=== PATIENT | female | born 1965 | race Caucasian/White ===

== ENCOUNTER 2017-01-20 04:17 | Observation (INO) | payer BC ==
[2017-01-20 04:54] LABS: Basophils % (A) 0 %; CH 31.2; CHCM 33.3; Eosinophils # (A) 0.1 k/uL (0-0.7); Eosinophils % (A) 2 %; HCT 41.2 % (34.0-46.0); HDW 2.38; HGB 13.2 gm/dL (11.4-16.0); Luc # (Auto) 0.17; Luc % (Auto) 2; Lymphocytes % (A) 27 %; MCH 30.2 pg (25.0-35.0); MCHC 32.1 g/dL (31.0-37.0); MCV 94.2 fL (80.0-100.0); Mean Platelet Volume 8.1; Monocytes # (A) 0.4 k/uL (0-1.0); Monocytes % (A) 6 %; Neutrophils # (A) 4.5 k/uL (1.3-7.7); Neutrophils % (A) 63 %; RBC 4.37 m/uL (3.80-5.40); RDW 14.5 % (11.5-15.5); WBC 7.2 k/uL (3.8-10.6); WBC (Perox) 6.94
[2017-01-20 05:03] LABS: ALT 35 U/L (9-52); AST 18 U/L (14-36); Alkaline Phosphatase 90 U/L (38-126); Anion Gap 11 mmol/L; Blood Urea Nitrogen 13 mg/dL (7-17); Calcium 9.8 mg/dL (8.4-10.2); Carbon Dioxide 25 mmol/L (22-30); Chloride 103 mmol/L (98-107); Glucose 96 mg/dL (74-99); Non-African American GFR(MDRD) >60 (>60 ml/min/1.73 sqM); Potassium 4.3 mmol/L (3.5-5.1); Sodium 139 mmol/L (137-145); Total Bilirubin 0.5 mg/dL (0.2-1.3); Total Protein 7.2 g/dL (6.3-8.2)
[2017-01-20 05:07] LABS: Partial Thromboplastin Time 27.9 sec (22.0-30.0); Prothrombin Time 10.1 sec (9.0-12.0)
[2017-01-20 05:14] LABS: Creatine Kinase 44 U/L (30-135)
--- NOTE | 2017-01-20 05:19 | XR ---
EXAM: XR Chest, 2 Views CLINICAL HISTORY: Reason: Chest Pain TECHNIQUE: Frontal and lateral views of the chest. COMPARISON: No relevant prior studies available. FINDINGS: Lungs: Lungs are clear. Pleural space: No evidence of pleural effusion or pneumothorax. Heart: Heart size is within normal limits. Mediastinum: Unremarkable. Bones/joints: Fixation plate projects to lower cervical spine. Imaged bony thorax is otherwise unremarkable. IMPRESSION: No evidence of active chest disease.
[2017-01-20 05:27] LABS: Troponin I <0.012 ng/mL (0.000-0.034)
--- NOTE | 2017-01-20 06:24 | ED ---
General Adult HPI - General Chief complaint: Chest Pain Stated complaint: Chest pain Time Seen by Provider: 01/20/17 04:18 Source: patient, RN notes reviewed, old records reviewed Mode of arrival: wheelchair Limitations: no limitations - History of Present Illness Initial comments: This is a 51-year-old female to the ER for evaluation patient coming in for evaluation of chest pain just started today, no history of chest pain no Hyla first questionable no diabetes no shortness of breath no history of recent shortness of breath. No fevers cough or congestion. Patient has no prior cardiac evaluation. No recent surgical history. Takes no medications patient' s chest pain is anterior substernal epigastric heaviness. No modifying factors - Related Data Home Medications Medication Instructions Recorded Confirmed No Known Home Medications [No 01/20/17 01/20/17 Known Home Medications] Allergies Allergy/AdvReac Type Severity Reaction Status Date / Time No Known Allergies Allergy Verified 01/20/17 04:23 Review of Systems ROS Statement: Those systems with pertinent positive or pertinent negative responses have been documented in the HPI. ROS Other: All systems not noted in ROS Statement are negative. Past Medical History Past Medical History: No Reported History History of Any Multi-Drug Resistant Organisms: None Reported Past Surgical History: Back Surgery Past Psychological History: Depression Smoking Status: Never smoker Past Alcohol Use History: Occasional Past Drug Use History: None Reported General Exam Limitations: no limitations General appearance: alert, in no apparent distress Head exam: Present: atraumatic, normocephalic, normal inspection Eye exam: Present: normal appearance, PERRL, EOMI. Absent: scleral icterus, conjunctival injection, periorbital swelling ENT exam: Present: normal exam, mucous membranes moist Neck exam: Present: normal inspection. Absent: tenderness, meningismus, lymphadenopathy Respiratory exam: Present: normal lung sounds bilaterally. Absent: respiratory distress, wheezes, rales, rhonchi, stridor Cardiovascular Exam: Present: regular rate, normal rhythm, normal heart sounds. Absent: systolic murmur, diastolic murmur, rubs, gallop, clicks GI/Abdominal exam: Present: soft, normal bowel sounds. Absent: distended, tenderness, guarding, rebound, rigid Extremities exam: Present: normal inspection, full ROM, normal capillary refill. Absent: tenderness, pedal edema, joint swelling, calf tenderness Back exam: Present: normal inspection Neurological exam: Present: alert, oriented X3, CN II-XII intact Psychiatric exam: Present: normal affect, normal mood Skin exam: Present: warm, dry, intact, normal color. Absent: rash Course Vital Signs 01/20/17 01/20/17 01/20/17 04:20 04:34 06:23 Temperature 98.0 F 97.8 F Pulse Rate 87 74 72 Respiratory 18 18 18 Rate Blood Pressure 144/66 146/90 144/73 O2 Sat by Pulse 100 98 99 Oximetry - Reevaluation(s) Reevaluation #1: 01/20/17 06:40 Still complains of this chest pain, at this point no shortness of breath, no fevers. Patient has no improvement with GI cocktail EKG Findings - EKG Comments: EKG Findings:: EKG shows normal sinus rhythm rate of 67, ID 120, QRS 84, QTC 433. EKG shows normal sinus under 63, ID 13, QRS 90, QTC 435 Medical Decision Making - Medical Decision Making 51 female here for evaluation of chest pain. Anterior chest pain. Epigastric chest pain or shortness of breath and heaviness. Patient will be admitted for cardiac observation - Lab Data Result diagrams: 01/20/17 04:40 01/20/17 04:40 Lab Results 01/20/17 01/20/17 01/20/17 Range/Units 04:40 04:40 04:40 WBC 7.2 (3.8-10.6) k/uL RBC 4.37 (3.80-5.40) m/uL Hgb 13.2 (11.4-16.0) gm/dL Hct 41.2 (34.0-46.0) % MCV 94.2 (80.0-100.0) fL MCH 30.2 (25.0-35.0) pg MCHC 32.1 (31.0-37.0) g/dL RDW 14.5 (11.5-15.5) % Plt Count 311 (150-450) k/uL Neutrophils % 63 % Lymphocytes % 27 % Monocytes % 6 % Eosinophils % 2 % Basophils % 0 % Neutrophils # 4.5 (1.3-7.7) k/uL Lymphocytes # 2.0 (1.0-4.8) k/uL Monocytes # 0.4 (0-1.0) k/uL Eosinophils # 0.1 (0-0.7) k/uL Basophils # 0.0 (0-0.2) k/uL PT (9.0-12.0) sec INR (<1.2) APTT (22.0-30.0) sec D-Dimer (<0.60) mg/L FEU Sodium 139 (137-145) mmol/L Potassium 4.3 (3.5-5.1) mmol/L Chloride 103 (98-107) mmol/L Carbon Dioxide 25 (22-30) mmol/L Anion Gap 11 mmol/L BUN 13 (7-17) mg/dL Creatinine 0.70 (0.52-1.04) mg/dL Est GFR (MDRD) Af Amer >60 (>60 ml/min/1.73 sqM) Est GFR (MDRD) Non-Af >60 (>60 ml/min/1.73 sqM) Glucose 96 (74-99) mg/dL Calcium 9.8 (8.4-10.2) mg/dL Magnesium 2.0 (1.6-2.3) mg/dL Total Bilirubin 0.5 (0.2-1.3) mg/dL AST 18 (14-36) U/L ALT 35 (9-52) U/L Alkaline Phosphatase 90 (38-126) U/L Total Creatine Kinase 44 (30-135) U/L CK-MB (CK-2) 1.0 (0.0-2.4) ng/mL CK-MB (CK-2) Rel Index 2.3 Troponin I <0.012 (0.000-0.034) ng/mL Total Protein 7.2 (6.3-8.2) g/dL Albumin 4.3 (3.5-5.0) g/dL Lipase 98 (23-300) U/L 01/20/17 Range/Units 04:40 WBC (3.8-10.6) k/uL RBC (3.80-5.40) m/uL Hgb (11.4-16.0) gm/dL Hct (34.0-46.0) % MCV (80.0-100.0) fL MCH (25.0-35.0) pg MCHC (31.0-37.0) g/dL RDW (11.5-15.5) % Plt Count (150-450) k/uL Neutrophils % % Lymphocytes % % Monocytes % % Eosinophils % % Basophils % % Neutrophils # (1.3-7.7) k/uL Lymphocytes # (1.0-4.8) k/uL Monocytes # (0-1.0) k/uL Eosinophils # (0-0.7) k/uL Basophils # (0-0.2) k/uL PT 10.1 (9.0-12.0) sec INR 1.0 (<1.2) APTT 27.9 (22.0-30.0) sec D-Dimer 0.27 (<0.60) mg/L FEU Sodium (137-145) mmol/L Potassium (3.5-5.1) mmol/L Chloride (98-107) mmol/L Carbon Dioxide (22-30) mmol/L Anion Gap mmol/L BUN (7-17) mg/dL Creatinine (0.52-1.04) mg/dL Est GFR (MDRD) Af Amer (>60 ml/min/1.73 sqM) Est GFR (MDRD) Non-Af (>60 ml/min/1.73 sqM) Glucose (74-99) mg/dL Calcium (8.4-10.2) mg/dL Magnesium (1.6-2.3) mg/dL Total Bilirubin (0.2-1.3) mg/dL AST (14-36) U/L ALT (9-52) U/L Alkaline Phosphatase (38-126) U/L Total Creatine Kinase (30-135) U/L CK-MB (CK-2) (0.0-2.4) ng/mL CK-MB (CK-2) Rel Index Troponin I (0.000-0.034) ng/mL Total Protein (6.3-8.2) g/dL Albumin (3.5-5.0) g/dL Lipase (23-300) U/L - Radiology Data Radiology results: report reviewed (Chest x-ray is negative for acute disease), image reviewed Critical Care Time Critical Care Time: Yes Total Critical Care Time: 31 Disposition Clinical Impression: Chest pain Disposition: ADMITTED IP TO THIS [facility] Condition: Undetermined Instructions: Chest Pain (ED) Referrals: Melissa Diaz MD [Primary Care Provider] - 1-2 days
[2017-01-20] MEDS ORDERED: MAG HYDROX/AL HYDROX/SIMETH 30 ML, HYOSCYAMINE ELIXIR 10 ML, CIMETIDINE HCL 300 MG PO STA ×3 (06:28)
[2017-01-20] MEDS ORDERED: HEPARIN SODIUM,PORCINE 5,000 UNIT/ML 1 ML VIAL IV ONE (06:39)
[2017-01-20] MEDS ORDERED: HEPARIN SODIUM,PORCINE 5,000 UNIT/ML 1 ML VIAL IV PRN (06:39)
[2017-01-20] MEDS ORDERED: ASPIRIN 81 MG CHEW PO STA (06:39)
[2017-01-20] MEDS: HEPARIN SODIUM,PORCINE/D5W PMX 25,000 UNIT in DEXTROSE/WATER 1 500ML.BAG IV SCH (07:04)
[2017-01-20] MEDS: NITROGLYCERIN SL TABS 0.4 MG TAB SUBLINGUAL PRN ×2 (11:25→11:30)
[2017-01-20] MEDS ORDERED: ACETAMINOPHEN TAB 325 MG TAB ONE (11:32)
[2017-01-20 11:45] LABS: Creatine Kinase 41 U/L (30-135)
[2017-01-20 11:55] LABS: Creatine Kinase MB 0.9 ng/mL (0.0-2.4); Troponin I <0.012 ng/mL (0.000-0.034)
[2017-01-20] MEDS: NITROGLYCERIN OINT 1 INCH/GM PACKET TOPICAL SCH ×2 (14:00→20:03)
[2017-01-20] MEDS: METOPROLOL TARTRATE 12.5 MG TAB PO SCH ×2 (14:00→22:53)
[2017-01-20 16:34] LABS: Creatine Kinase 34 U/L (30-135)
[2017-01-20 16:45] LABS: Creatine Kinase MB 0.6 ng/mL (0.0-2.4); Troponin I <0.012 ng/mL (0.000-0.034)
[2017-01-20] MEDS: ACETAMINOPHEN TAB 500 MG TAB PO PRN (20:03)
--- NOTE | 2017-01-20 20:12 | CONS ---
This is a 51-year-old lady without past medical history. She is a reasonably active lady, and she came into the emergency room because she woke up from sleep around 1:30 with chest pain. Apparently the pain she describes is a feeling of uncomfortable sensation in the epigastric area and later on to the left axillary area. She came into the emergency room, and after receiving nitroglycerine felt relief from the chest pain. EKG revealed minor non-specific ST-T changes and 2 sets of troponins are normal. She is resting comfortably without symptoms. Initially when I saw her she had some discomfort, but apparently she is quite asymptomatic, and 2 sets of troponins are normal. Her EKG revealed non-specific changes which are not suggestive of ischemia. She describes herself as a fairly reasonably active person. At the time of my evaluation, she is asymptomatic. PAST MEDICAL HISTORY: Unremarkable for any hypertension, diabetes, myocardial infarction or CVA. MEDICATIONS: None. ALLERGIES: NONE. REVIEW OF SYSTEMS: Remarkable for cervical spine surgery and lumbar surgery performed a few years ago. Cervical spine surgery was ( ) years ago with fusion from C3 to C7 because of degenerative joint disease. She also had lumbar surgery several years ago. She also seems to have some mild depression. On examination, blood pressure is 128/70. Pulse rate is 70 per minute, regular. HEENT: Unremarkable. Fundus was not examined by me. Neck is supple. No JVD. I do not hear a carotid bruit. There is no thyromegaly. Heart exam reveals S1, S2 heard normally without a rub, murmur or gallop. Lungs are clear. Abdomen is soft, non-tender. Lower extremities reveal normal pulses. No edema. Central nervous system is normal. EKG reveals sinus mechanism with very minor non-specific ST-T changes. Laboratory data reveal that 2 initial sets of troponins are normal. All the other labs are also within normal limits. IMPRESSION: Chest pain syndrome. Cannot totally exclude angina. D-dimer is normal. Two troponins are normal. EKG does not reveal significant findings. Patient is not having any further chest pain. I am recommending that we perform a stress Cardiolite scan tomorrow if she can walk. Otherwise, we will do a Lexiscan stress test. However, if she has any symptoms in the interim, I will perform coronary angiography. I discussed my thoughts in detail with the patient and her friend. She is in agreement with the above-outlined approach. Thank you very much for the consult. TIARA
[2017-01-21] MEDS: NITROGLYCERIN OINT 1 INCH/GM PACKET TOPICAL SCH ×3 (05:33→12:35)
[2017-01-21] MEDS: ACETAMINOPHEN TAB 500 MG TAB PO PRN (06:29)
[2017-01-21 06:59] LABS: Mean Platelet Volume 7.3
[2017-01-21 07:09] LABS: Cholesterol 200 mg/dL (<200); HDL Cholesterol 67 mg/dL (40-60)
[2017-01-21 08:10] VITALS: BP 112/63; PULSE 75; RESP 16; TEMP 98.9
[2017-01-21] MEDS ORDERED: ASPIRIN 325 MG TAB PO SCH (09:00)
--- NOTE | 2017-01-21 10:07 | ECHOF ---
Referral Reason:chest pain MEASUREMENTS -------- HEIGHT: 162.6 cm WEIGHT: 79.4 kg BP: 109/61 IVSd: 0.9 cm (0.6 - 1.1) LVIDd: 4.3 cm (3.9 - 5.3) LVPWd: 1.1 cm (0.6 - 1.1) IVSs: 1.5 cm LVIDs: 2.8 cm LVPWs: 1.7 cm Ao Diam: 2.7 cm (2.0 - 3.7) AV Cusp: 2.2 cm (1.5 - 2.6) LA Diam: 2.7 cm (2.7 - 3.8) MV EXCURSION: 15.184 mm (> 18.000) MV EF SLOPE: 136 mm/s (70 - 150) EPSS: 0.3 cm MV E Shashi: 0.83 m/s MV DecT: 250 ms MV A Shashi: 0.73 m/s MV E/A Ratio: 1.14 RAP: 5.00 mmHg RVSP: 8.46 mmHg FINDINGS -------- Sinus rhythm. This was a technically good study. Left ventricular wall thickness is normal. Overall left ventricular systolic function is normal with, an EF between 55 - 60 %. The right ventricle is normal in size and function. The left atrium is normal in size. The right atrium is normal in size. The aortic valve is trileaflet, and appears structurally normal. No aortic stenosis or regurgitation. The mitral valve leaflets are mildly thickened. There is trace mitral regurgitation. Trace tricuspid regurgitation present. The right ventricular systolic pressure, as measured by Doppler, is 8.46mmHg. Pulmonic valve appears structurally normal. The aortic root size is normal. The pericardium is normal. CONCLUSIONS -------- 1. Sinus rhythm. 2. There is trace mitral regurgitation. 3. Trace tricuspid regurgitation present. 4. The right ventricular systolic pressure, as measured by Doppler, is 8.46mmHg. 5. Pulmonic valve appears structurally normal. 6. The aortic root size is normal. 7. The pericardium is normal. 8. This was a technically good study. 9. Left ventricular wall thickness is normal. 10. Overall left ventricular systolic function is normal with, an EF between 55 - 60 %. 11. The right ventricle is normal in size and function. 12. The left atrium is normal in size. 13. The right atrium is normal in size. 14. The aortic valve is trileaflet, and appears structurally normal. No aortic stenosis or regurgitation. 15. The mitral valve leaflets are mildly thickened. DOWN FILLER: Collette Verdugo RDCS
[2017-01-21] MEDS: METOPROLOL TARTRATE 12.5 MG TAB PO SCH (10:34)
--- NOTE | 2017-01-21 10:49 | NM ---
EXAMINATION TYPE: NM stress cardiolite complete DATE OF EXAM: 01/21/2017 COMPARISON: NONE HISTORY: TECHNIQUE: After the intravenous administration of 10.9 mCi Tc 99m Sestamibi - Rest images obtained 60 minutes post injection. The patient exercised using a JESS protocol and 1 minute prior to peak exercise was injected with 26.1 mCi Tc 99m Sestamibi - Stress images obtained 15 minutes post injecti on. FINDINGS: Targeted heart rate was achieved during performance of the study. Review of stress and rest SPECT nikki ges demonstrates no distinct perfusion abnormality. Gated analysis shows normal wall motion with an estimated left ventricular ejection fraction of 63 %. IMPRESSION: No scintigraphic evidence for reversible ischemia
[2017-01-21] MEDS: HEPARIN SODIUM,PORCINE/D5W PMX 25,000 UNIT in DEXTROSE/WATER 1 500ML.BAG IV SCH (10:50)
--- NOTE | 2017-01-21 11:22 | EST ---
DATE OF SERVICE: 01/21/2017 TYPE OF REPORT: JESS CARDIOLITE STRESS TEST INDICATION: Chest pain. BASELINE HEART RATE: 95 BASELINE BLOOD PRESSURE: 122/65 MAXIMUM HEART RATE: 152 MAXIMUM BLOOD PRESSURE: 198/93 85% MPHR: 145 100% MPHR: 170 METS: 8.5 MAXIMUM STAGE REACHED: 3 TOTAL EXERCISE TIME: 7:00 Baseline EKG revealed normal sinus rhythm with a minor nonspecific ST-T abnormality. Patient walked on standard Jess protocol for 7 minutes, achieved a maximal heart rate of 152 beats per minute which is more than 85% of predicted maximal. She developed fatigue and shortness of breath but did not have any angina or arrhythmia. EKG did not reveal any new ST-segment changes to indicate ischemia but because of resting ST-segment abnormality, this is considered as an inconclusive stress test with limited exercise capacity. The nuclear scan results which are more pertinent will be reported by the radiologist. Maximal blood pressure was 198/93 and resting blood pressure was 122/65. [facility]
--- NOTE | 2017-01-21 12:23 | P.HPIM ---
History of Present Illness H&P Date: 01/20/17 Chief Complaint: Chest pain History and physical and discharge summary. This is a 51-year-old female patient of Dr. Walters with a past medical history of lumbar disc disease and cervical spine disease. Patient was sleeping and woke at 1:30 this morning due to a sharp pain in the left breast. She denies any nausea or shortness of breath. He she does state she felt hot. She took Tylenol and Pepcid without improvement. Patient ended up coming to the ER [facility] with above complaint and had an EKG that showed normal sinus rhythm with no acute ischemic changes, cardiac enzymes are negative , however because of her presentation she was admitted to the hospital for evaluation. Patient stated that she walk her dog on a daily basis but to management any evidence of any effort dyspnea however she does complain of more weakness over the last few weeks, patient has no hemoptysis, no pleurisy, she has no edema both lower extremities, she has no palpitation, she has no headache or syncope. Review of Systems Constitutional: Denies anorexia, Denies chronic headaches, Denies lethargy, Denies malaise, Denies weight gain, Denies weight loss Eyes: denies blurred vision, denies bulging eye, denies decreased vision, denies diplopia Ears: deny: decreased hearing Ears, nose, mouth and throat: Denies dysphagia, Denies neck lump, Denies sore throat, Denies vertigo Cardiovascular: Reports dyspnea on exertion, Reports irregular heart beat, Reports shortness of breath, Denies chest pain, Denies phlebitis, Denies rapid heart beat Respiratory: Denies congestion, Denies cough with sputum, Denies home oxygen, Denies sleep apnea, Denies snoring, Denies wheezing Gastrointestinal: Denies abdominal pain, Denies BRBPR, Denies change in bowel habits, Denies excessive gas, Denies heartburn, Denies melena, Denies nausea, Denies vomiting Genitourinary: Denies dysuria, Denies hematuria Musculoskeletal: Reports neck pain, Reports neck stiffness, Denies myalgias Musculoskeletal: absent: ankle pain, ankle stiffness, ankle swelling, elbow pain , elbow stiffness, elbow swelling, foot pain, foot stiffness, foot swelling, hand pain, hand stiffness, hand swelling, hip pain, hip stiffness, hip swelling , knee pain, knee stiffness, knee swelling, shoulder pain, shoulder stiffness, shoulder swelling, wrist pain, wrist stiffness, wrist swelling Integumentary: Denies pruritus, Denies rash Neurological: Denies numbness, Denies weakness Psychiatric: Denies anxiety, Denies depression Endocrine: Denies fatigue, Denies weight change Past Medical History Past Medical History: Hyperlipidemia, Osteoarthritis (OA) Additional Past Medical History / Comment(s): Degenerative disc disease of the cervical spine and lumbar spine status post ACDF. History of Any Multi-Drug Resistant Organisms: None Reported Past Surgical History: Back Surgery Additional Past Surgical History / Comment(s): 2 lumbar laminectomies, C3 to C7 ACDF Past Psychological History: Depression Smoking Status: Never smoker Past Alcohol Use History: Occasional Additional Past Alcohol Use History / Comment(s): Patient is a lifelong nonsmoker. No illicit drug use. She drinks alcohol socially. 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 Past Drug Use History: None Reported - Past Family History Father Additional Family Medical History / Comment(s): Father is alive at age 77 with history of depression and other mental health issues. Mother Additional Family Medical History / Comment(s): Mother is alive at age 75 with history of myocardial infarction at age 70. Maternal grandfather at age 40 from a myocardial infarction. Paternal grandmother of colon cancer. Brother(s) Additional Family Medical History / Comment(s): Patient has one brother alive and healthy with no major medical problems. Patient does not have any sisters. Patient does not have any children. Medications and Allergies Allergies Allergy/AdvReac Type Severity Reaction Status Date / Time No Known Allergies Allergy Verified 01/20/17 07:12 Physical Exam Vitals: Vital Signs Temp Pulse Resp BP Pulse Ox 01/20/17 09:55 97.8 F 63 17 126/60 100 01/20/17 09:53 97.8 F 63 17 126/60 100 01/20/17 08:00 63 17 126/60 100 01/20/17 07:28 106 H 18 139/72 01/20/17 06:23 97.8 F 72 18 144/73 99 01/20/17 04:34 74 18 146/90 98 01/20/17 04:20 98.0 F 87 18 144/66 100 Intake and Output 01/19/17 01/20/17 01/20/17 22:59 06:59 14:59 Other: Weight 79.379 kg - Constitutional General appearance: no acute distress - EENT Eyes: anicteric sclerae, EOMI, PERRLA, no scleral icterus, normal appearance ENT: hearing grossly normal, NA/AT, normal oropharynx, no thrush Ears: bilateral: normal - Neck Neck: no lymphadenopathy, normal ROM, no rigidity, no stridor, no thyromegaly Carotids: bilateral: upstroke normal Thyroid: bilateral: normal size - Respiratory Respiratory: bilateral: CTA, negative: diminished, dullness, rales, rhonchi, wheezing, prolonged expiration - Cardiovascular Rhythm: regular Heart sounds: normal: S1, S2 Abnormal Heart Sounds: no systolic murmur, no diastolic murmur, no rub, no S3 Gallop, no S4 Gallop, no click - Gastrointestinal General gastrointestinal: normal bowel sounds, soft, no splenomegaly, no tenderness, no umbilical hernia, no ventral hernia - Integumentary Integumentary: normal, normal turgor - Musculoskeletal Musculoskeletal: strength equal bilaterally - Psychiatric Psychiatric: A&O x's 3, appropriate affect, intact judgment & insight Results CBC & Chem 7: 01/21/17 06:25 01/20/17 04:40 Thrombosis Risk Factor Assmnt - DVT/VTE Prophylaxis DVT/VTE Prophylaxis: Pharmacologic Prophylaxis ordered Assessment and Plan Plan: Assessment and plan: 1. Chest pain noncardiac. Few risk factor for CAD. Including weight as well as family history, patient will be sent for a stress echo for further evaluation due to her family history, and if her stress test is negative can be discharged home and follow up with her primary care physician as an outpatient. 2. Degenerative disc disease of the lumbar spine as well as cervical spine status post surgery. 3. Hyperlipidemia. Fasting lipid profile 4. Overweight. Diet and exercise and weight loss. 5. Admitted as an observation. 6. Stress test is negative patient can be discharged home with follow-up with her primary care physician as an outpatient.
--- NOTE | 2017-01-21 12:30 | P.DS ---
Providers Date of admission: 01/20/17 06:39 Expected date of discharge: 01/21/17 Attending physician: Concepcion Malik Consults: 01/20/17 06:39 Consult Physician Urgent Consulting Provider: Mykel Mendoza Consult Reason/Comments: cp Do you want consulting provider notified?: Yes Primary care physician: Melissa Diaz [facility] Course: This is a 51-year-old female patient of Dr. Walters with a past medical history of lumbar disc disease and cervical spine disease. Patient was sleeping and woke at 1:30 this morning due to a sharp pain in the left breast. She denies any nausea or shortness of breath. He she does state she felt hot. She took Tylenol and Pepcid without improvement. Patient ended up coming to the ER [facility] with above complaint and had an EKG that showed normal sinus rhythm with no acute ischemic changes, cardiac enzymes are negative , however because of her presentation she was admitted to the hospital for evaluation. Patient stated that she walk her dog on a daily basis but to management any evidence of any effort dyspnea however she does complain of more weakness over the last few weeks, patient has no hemoptysis, no pleurisy, she has no edema both lower extremities, she has no palpitation, she has no headache or syncope. 01/21: Echocardiogram reveals EF 55-60% with trace tricuspid regurgitation, trace mitral regurgitation. Stress Cardiolite was negative and patient will be discharged home today in stable condition. Triglycerides 162, cholesterol 200, LDL 101 and HDL 67. Discharge diagnoses: 1. Chest pain noncardiac. 2. Degenerative disc disease of the lumbar spine as well as cervical spine status post surgery. 3. Hyperlipidemia. 4. Overweight. 5. Admitted as an observation. Discharge plan: Home Impression and plan of care have been directed as dictated by the signing physician. Antonietta Herndon nurse practitioner acting as scribe for signing physician. Cc: Dr. Diaz Patient Condition at Discharge: Good Plan - Discharge Summary New Discharge Prescriptions: New Metoprolol Tartrate [Lopressor] 12.5 mg PO BID #60 tab Discharge Medication List Metoprolol Tartrate [Lopressor] 12.5 mg PO BID #60 tab 01/21/17 [Rx] Follow up Appointment(s)/Referral(s): Keshia Carlton MD [STAFF PHYSICIAN] - As Needed Melissa Diaz MD [Primary Care Provider] - 1 Week Patient Instructions/Handouts: Chest Pain (ED) Discharge Disposition: HOME SELF-CARE
--- NOTE | 2017-01-21 13:40 | P.PN ---
Subjective Patient remained asymptomatic overnight. She underwent a Cardiolite stress test this morning. Objective - Vital Signs Vital signs: Vital Signs Temp 98.9 F 01/21/17 08:00 Pulse 75 01/21/17 08:00 Resp 16 01/21/17 08:00 BP 112/63 01/21/17 08:00 Pulse Ox 95 01/21/17 08:00 Intake & Output 01/20/17 01/21/17 01/21/17 18:59 06:59 18:59 Intake Total 480 Balance 480 Intake: Oral 480 Other: Voiding Method Toilet # Voids 2 - Exam GENERAL: Well-appearing, well-nourished and in no acute distress. NECK: Supple without JVD or thyromegaly. LUNGS: Breath sounds clear to auscultation bilaterally and equal. No wheezes, rales or rhonchi. HEART: Regular rate and rhythm without murmurs, rubs or gallops. S1 and S2 heard. ABDOMEN: Soft, nontender, normoactive bowel sounds. EXTREMITIES: Normal range of motion, no edema. No clubbing or cyanosis. Peripheral pulses intact and strong. - Labs CBC & Chem 7: 01/21/17 06:25 01/20/17 04:40 Labs: Abnormal Lab Results - Last 24 Hours (Table) 01/21/17 Range/Units 06:25 Triglycerides 162 H (<150) mg/dL Cholesterol 200 H (<200) mg/dL LDL Cholesterol, Calc 101 H (0-99) mg/dL HDL Cholesterol 67 H (40-60) mg/dL Assessment and Plan Plan: ASSESSMENT 1. Chest pain, atypical. Noncardiac 2. Hyperlipidemia PLAN Patient had a negative Cardiolite stress test. From a cardiac standpoint it is suitable for discharge home. She was started on Lopressor 12.5 mg twice a day. This should be continued. She can follow-up with her primary care physician within one week and Dr. KARI Carlton as needed.
== END 2017-01-21 12:00 | disposition home or self-care (01) ==
LOC: EC 04:17 → 3OBS 06:39 → 2CATHESU 09:56 → 3OBS 11:24
PROVIDERS: ADMIT Internal Medicine; ATTEND Internal Medicine
DX: R07.89 Other chest pain (principal); F32.9 Major depressive disorder, single episode, unspecified; M50.30 Other cervical disc degeneration, unspecified cervical region; R06.02 Shortness of breath; E78.5 Hyperlipidemia, unspecified; M19.90 Unspecified osteoarthritis, unspecified site; M51.36 Other intervertebral disc degeneration, lumbar region; E66.3 Overweight; I08.1 Rheumatic disorders of both mitral and tricuspid valves; Z82.49 Family history of ischemic heart disease and other diseases of the circulatory system
CPT/HCPCS: 96366 ×3; 96376; 96365; 99291; 36415; 93005 ×2; 93017; 93306; 85379; 80061; 80053; 82550; 82553; 83690; 83735; 84484; 85025; 85049; 85610; 85730; 71020; 78452; G0378 ×2; A9500; J1644 ×2

== ENCOUNTER → 2017-02-04 | Outpatient (CLI) | payer BC ==
--- NOTE | 2017-02-04 15:07 | CT ---
EXAMINATION TYPE: CT chest w con DATE OF EXAM: 02/04/2017 COMPARISON: NONE HISTORY: Chest pain CT DLP: 274.70 mGycm. Automated Exposure Control for Dose Reduction was Utilized. TECHNIQUE: CT scan of the thorax is performed following with IV Contrast, patient injected with 100 ml mL of Omnipaque 300. FINDINGS: There is partial visualization of an anterior cervical fusion device in its inferior margin . LUNGS: The lungs are grossly clear, there is no concerning parenchymal mass or nodule identified. T here is no pleural effusion or pneumothorax seen. The tracheobronchial tree is patent. There is slig ht elevation of the right hemidiaphragm from the liver impression. MEDIASTINUM: There are no greater than 1 cm hilar or mediastinal lymph nodes. No pericardial effusi on is seen. No central pulmonary embolus is seen. Both the ascending aorta and pulmonary artery are not enlarged. OTHER: Small Bochdalek diaphragmatic hernias noted. Incompletely characterized hypoattenuating hepat ic lesions are seen on series 4 image 61, 59, 47 and possibly on 39. Cholelithiasis is also incidenta lly noted. IMPRESSION: 1. No CT finding to correspond to the patient's stated chest pain. Normal calvarial pulmonary arterie s, heart, and thoracic aorta. No evidence of dissection or central pulmonary embolus. 2. Multiple incompletely characterized hypoattenuated hepatic lesions. Further characterization with dynamic contrast enhanced CT abdomen or MR abdomen is recommended for further evaluation and characte rization. 3. Incidentally noted cholelithiasis and small diaphragmatic Bochdalek hernia.
== END | disposition home or self-care (01) ==
LOC: RADCTMAIN 14:10
PROVIDERS: ATTEND Family Medicine
DX: R07.9 Chest pain, unspecified (principal)
CPT/HCPCS: 71260; Q9967

== ENCOUNTER → 2017-02-19 | Outpatient (CLI) | payer BC ==
--- NOTE | 2017-02-19 15:24 | CT ---
EXAMINATION TYPE: CT abdomen w con DATE OF EXAM: 02/19/2017 COMPARISON: NONE HISTORY: Hepatic Lesions CT DLP: 586.9 mGycm Automated exposure control for dose reduction was used. TECHNIQUE: Helical acquisition of images was performed from the lung bases through the top of iliac crest to include entire abdomen. CONTRAST: Performed with Oral Contrast and with IV Contrast, patient injected with 100 mL of Omnipaque 300. FINDINGS: LUNG BASES: No significant abnormality is appreciated. LIVER/GB: Solid appearing mass near the caudate lobe and measures 3.3 cm and appears to fill in follo wing delayed imaging and this likely reflects a hemangioma. Simple cyst near the falciform ligament ( lobe measures 1 cm. An additional hypoattenuating lesion anterior segment right hepatic lobe at the p eriphery of the liver appears to fill in on delayed images and measures 1.2 cm. This likely reflects a hemangioma. Additional lesion near the tip of the liver inferiorly also appears to fill in and nafisa ures 9 mm. This may also reflect an additional hemangioma. Stone filled contracted gallbladder is not ed. PANCREAS: No significant abnormality is seen. SPLEEN: No significant abnormality is seen. ADRENALS: No significant abnormality is seen. KIDNEYS: No significant abnormality is seen. BOWEL: Small hiatal hernia is identified. LYMPH NODES: No significant abnormality is seen. OSSEOUS STRUCTURES: No significant abnormality is seen. FREE AIR: No free air is visualized. IMPRESSION: 1. 3 PROBABLE HEMANGIOMAS ARE FELT TO BE PRESENT WITHIN THE LIVER. PRECAUTIONARY 6 MONTH FOLLOW-UP EV ALUATION IS ADVISED. 2. CONTRACTED STONE FILLED GALLBLADDER. 3. SMALL HIATAL HERNIA
== END | disposition home or self-care (01) ==
LOC: RADCTMAIN 14:47
PROVIDERS: ATTEND Family Medicine
DX: K80.20 Calculus of gallbladder without cholecystitis without obstruction (principal); K44.9 Diaphragmatic hernia without obstruction or gangrene
CPT/HCPCS: 74160; Q9967

== ENCOUNTER → 2018-07-19 | Outpatient (CLI) | payer BC ==
[2018-07-19 07:10] LABS: HGB 13.7 gm/dL (11.4-16.0); MCH 29.3 pg (25.0-35.0); MCHC 31.9 g/dL (31.0-37.0); MCV 91.8 fL (80.0-100.0); Mean Platelet Volume 6.7; Platelet Count 351 k/uL (150-450); RBC 4.68 m/uL (3.80-5.40); RDW 13.9 % (11.5-15.5); WBC 5.4 k/uL (3.8-10.6)
[2018-07-19 07:24] LABS: ALT 20 U/L (9-52); AST 18 U/L (14-36); Albumin 4.3 g/dL (3.5-5.0); Alkaline Phosphatase 76 U/L (38-126); Anion Gap 6 mmol/L; Blood Urea Nitrogen 16 mg/dL (7-17); Calcium 9.6 mg/dL (8.4-10.2); Carbon Dioxide 30 mmol/L (22-30); Chloride 105 mmol/L (98-107); Cholesterol 235 mg/dL (<200); Glucose 98 mg/dL (74-99); HDL Cholesterol 66 mg/dL (40-60); LDL Cholesterol,Calculated 149 mg/dL (0-99); Magnesium 2.2 mg/dL (1.6-2.3); Sodium 141 mmol/L (137-145); Total Bilirubin 0.4 mg/dL (0.2-1.3); Total Protein 7.2 g/dL (6.3-8.2); Triglycerides 99 mg/dL (<150)
[2018-07-19 07:40] LABS: T4, Free (Free Thyroxine) 0.88 ng/dL (0.78-2.19)
[2018-07-19 12:37] LABS: Vitamin D 25 Hydroxy 21.2 ng/mL (30.0-100.0)
--- NOTE | 2018-07-20 12:05 | MM ---
Reason for exam: screening (asymptomatic). Last mammogram was performed 3 years and 6 months ago. History: Patient is postmenopausal and is nulliparous. Family history of breast cancer in aunt at age 64. US discontinued breast bx RT of the right breast, January 15, 2015. Benign cyst aspiration of the right breast. Took hormonal contraceptives for 15 years beginning at age 17. Physical Findings: A clinical breast exam by your physician is recommended on an annual basis and results should be correlated with mammographic findings. MG Screening Mammo w CAD Bilateral CC and MLO view(s) were taken. Prior study comparison: January 02, 2015, right breast MG diagnostic mammo RT w CAD. February 26, 2014, bilateral MG screening mammo w CAD. The breast tissue is heterogeneously dense. This may lower the sensitivity of mammography. No significant changes when compared with prior studies. ASSESSMENT: Benign, BI-RAD 2 RECOMMENDATION: Routine screening mammogram of both breasts in 1 year.
== END | disposition home or self-care (01) ==
LOC: RADMAMWWP 06:34
PROVIDERS: ATTEND Family Medicine
DX: Z12.31 Encounter for screening mammogram for malignant neoplasm of breast (principal); Z00.00 Encounter for general adult medical examination without abnormal findings; R53.83 Other fatigue
CPT/HCPCS: 77067; 80053; 80061; 82306; 82607; 83735; 84439; 84443; 85027

== ENCOUNTER → 2018-08-26 | Outpatient (CLI) | payer BC ==
--- NOTE | 2018-08-26 11:29 | CT ---
EXAMINATION TYPE: CT abdomen w con DATE OF EXAM: 08/26/2018 HISTORY: Follow up hepatic lesions. CT DLP: 612.5mGycm Automated Exposure Control for Dose Reduction was Utilized. CONTRAST: CT scan of the abdomen was performed with IV Contrast, patient injected with 100 mL of Isovue M300. COMPARISON: 02/19/2017 FINDINGS: LUNG BASES: There is a small Bochdalek hernia. Minimal bibasilar atelectasis is seen. There is also s mall hiatal hernia. LIVER/GB: Within segment 8 in its medial aspect there is redemonstration of a hyperdense 3.3 cm hepat ic mass is seen towards the caudate lobe. This is no washout on delayed imaging. This is unchanged in size from the prior of 02/19/2017. The additional 2 hypoattenuated 1 cm and under lesions are highly f avored to represent stable hepatic cysts. Lastly within segment 6 of the 7 mm lesion does appear to f ill-in on delayed imaging and likely represents a hemangioma. This is also stable. No new hepatic les ion is seen. No intrahepatic biliary ductal dilatation. Gallbladder is contracted. PANCREAS: No significant abnormality is seen. SPLEEN: No significant abnormality is seen. ADRENALS: No significant abnormality is seen. KIDNEYS: Kidneys enhance and excrete symmetrically. BOWEL: No dilated large or small bowel. LYMPH NODES: No greater than 1cm abdominal or pelvic lymph nodes are appreciated. OSSEOUS STRUCTURES: No significant abnormality is seen. IMPRESSION: 1. Stable approximately 3.3 cm hyperdense hepatic mass is overall favored to be benign and may relate to focal nodular hyperplasia, adenoma, or hemangioma. Additional liver lesions also appear benign fa vored to represent a small hemangioma and cysts. 2. Redemonstration of a small hiatal hernia and Bochdalek hernia.
--- NOTE | 2018-08-26 12:45 | XR ---
EXAMINATION TYPE: XR Hip Complete RT DATE OF EXAM: 08/26/2018 COMPARISON: NONE HISTORY: Pain TECHNIQUE: 2 views submitted FINDINGS: There is no evidence of erosive change or acute fracture. Hypertrophic change of the acetabulum and g reater trochanter. Contrast within the bladder noted. SI joint mild arthropathy. Mild concentric narr owing of the hip joint. IMPRESSION: 1. Arthropathy and hypertrophic change involving the right hip correlate for femoral acetabular impin gement. 2. Spurring along the greater trochanter can occasionally be associated with trochanteric bursitis. R ecommend follow-up MRI.
== END | disposition home or self-care (01) ==
LOC: RADCTMAIN 09:53
PROVIDERS: ATTEND Family Medicine
DX: K76.9 Liver disease, unspecified (principal); R16.0 Hepatomegaly, not elsewhere classified; M16.11 Unilateral primary osteoarthritis, right hip
CPT/HCPCS: 73502; 74160; Q9967

== ENCOUNTER → 2018-09-06 | Outpatient (CLI) | payer BC ==
--- NOTE | 2018-09-06 23:08 | CONS ---
CONSULTATION REASON FOR CONSULTATION: Sleep apnea. This is a 53-year-old female patient who was investigated for sleep apnea more than 10 years ago and she was told she did not have any sleep breathing disorder. Since then, her condition has gotten worse. She is having loud snoring, witnessed apneas by coworkers, major hypersomnia or sleepiness during the day. She grinds her teeth and she wears a bite guard. She wakes up tired and feels sleepy during the day and she is worried that she is going to fall asleep while driving. The patient lives in [place] and she drives one hour to [facility] back and forth every day. She is worried that she is going to fall asleep; however, she has never been involved in a motor vehicle accident. 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 She suffers from chronic anxiety and depression. For that reason she is on Effexor. Unfortunately she lost her grandfather, godfather and father over one year and her grandmother lives in [place] and she has to be there also where she attends to all her medical needs every couple of weeks in [place]. She is under a significant amount of stress and she is feeling somnolent and sleepy and she is hoping to be re-evaluated for obstructive sleep apnea based on the fact that her symptoms have gotten worse. Over the past 10 years she has gained around 30-40 pounds, according to her. Her current [place] score is 17. No sleep paralysis, hallucinations or cataplexy. She sleeps on her side. She consumes 16 ounces of coffee in the morning. No history of alcoholism. No history of head trauma. No history of meningitis. No history of any closed head injury. PAST MEDICAL HISTORY: Chronic anxiety/depression. PAST SURGICAL HISTORY: Cervical fusion, C3 through C7. DRUG ALLERGIES: NOT KNOWN. OUTPATIENT MEDICATION LIST: Includes: 1. Effexor XR 75 mg p.o. daily. 2. Vitamin D one tablet a day. SOCIAL HISTORY: The patient is a nonsmoker. No history of alcoholism. No history of IV drugs. FAMILY HISTORY: Positive for sleep apnea in her brother. There is also hypertension and heart disease that run in her family. REVIEW OF SYSTEMS: Fourteen-point review of systems was done. Positive findings were all mentioned above in the history of present illness. No history of insomnia. No history of any nocturia or urinary difficulties. She wakes up with a dry mouth. She has no panic attacks. No palpitations. No heartburn. No nausea, vomiting or indigestion. No chest pain. No restlessness in the lower extremities. No sweating. No sleepwalking or sleeptalking. She has chronic anxiety, which is well treated. No problems with memory or concentration; however, she is quite somnolent and sleepy during the day. She can fall asleep at any time. She has not been falling asleep while driving, although this is an obvious concern. PHYSICAL EXAMINATION: BP is 132/73, pulse 82, respirations 16, temperature 98.1, saturation 98% on room air. Height is 5 feet 4 inches. Weight is 179, BMI 30. Neck size 14 inches. Her current [place] score is 17. GENERAL APPEARANCE: Calm, comfortable. Head is atraumatic, normocephalic. NECK: Supple. Mallampati class IV. There is no goiter or neck mass. LUNGS: Clear to auscultation. Heart sounds are regular rate and rhythm. Normal S1, S2. No S3, S4. No murmurs. ABDOMEN: Soft, nontender. No organomegaly. EXTREMITIES: No edema. No cyanosis or clubbing. NEUROLOGIC: Alert and oriented x3. No focal neurological deficits. PSYCHIATRIC: Positive for anxiety. No active symptoms of depression. SKIN: Negative for any wounds or ulceration. IMPRESSION: 1. Hypersomnia, [place] score of 17, under investigation. High suspicion for obstructive sleep apnea. 2. Loud snoring. 3. Overweight with interval 40-pound weight gain over the past 10 years. Current BMI 30.0. 4. Chronic anxiety/depression. PLAN: Overall suspicion for obstructive sleep apnea is high. We will proceed with a home sleep study to confirm the findings. If negative, she will need a PSG and second-day MSLT and she will be considered for stimulant therapy, knowing that she is very somnolent and sleepy and there is no other obvious secondary cause for her chronic sleepiness. Encourage weight loss. Implement good sleep hygiene measures. We will continue to follow. MMODL / IJN: [id number] /
== END | disposition home or self-care (01) ==
LOC: SLEEP 16:12
PROVIDERS: ATTEND Internal Medicine Critical Care Medicine
DX: G47.10 Hypersomnia, unspecified (principal); R06.83 Snoring; F45.8 Other somatoform disorders; F41.9 Anxiety disorder, unspecified; F32.9 Major depressive disorder, single episode, unspecified; E66.3 Overweight; Z98.890 Other specified postprocedural states; Z98.1 Arthrodesis status; Z79.899 Other long term (current) drug therapy; Z83.6 Family history of other diseases of the respiratory system; Z68.30 Body mass index [BMI] 30.0-30.9, adult
CPT/HCPCS: 99211

== ENCOUNTER 2018-11-11 07:35 | Day surgery (SDC) | payer BC ==
[~2018-11-11 07:35] MED LIST: LACTATED RINGERS 1,000 ML IV SCH
[2018-11-11 07:51] VITALS: TEMP 98.4
[2018-11-11] MEDS ORDERED: LACTATED RINGERS 1,000 ML IV ONE (07:51)
[2018-11-11] MEDS ORDERED: LIDOCAINE 1% 20 ML VIAL (10MG/ML) FOR IV START INTRADERMA ONE (07:59)
[2018-11-11] MEDS ORDERED: PROPOFOL 10 MG/ML 20 ML VIAL IV ONE (08:54)
--- NOTE | 2018-11-11 09:16 | P.PCN ---
Date of Procedure: 11/11/18 Procedure(s) Performed: BRIEF HISTORY: Patient is a 53-year-old pleasant white female scheduled for an elective colonoscopy as a part of screening for colorectal neoplasia. Her grandmother was diagnosed colon cancer at age 70 PROCEDURE PERFORMED: Colonoscopy. PREOPERATIVE DIAGNOSIS: Screening for colon cancer. IV sedation per Anesthesia. PROCEDURE: After informed consent was obtained, the patient, was brought into the endoscopy unit. IV sedation was administered by Anesthesia under continuous monitoring. Digital rectal examination was normal. Initially the Olympus CF-160 flexible video colonoscope was then inserted in the rectum, gradually advanced into the cecum without any difficulty. Careful examination was performed as the scope was gradually being withdrawn. Ileocecal valve and the appendiceal orifice were visualized and appeared normal. Prep was excellent. Mucosa of the cecum, ascending colon, transverse colon, descending colon, sigmoid colon, and rectum appeared normal. Retroflexion was performed in the rectum and no lesions were seen. The patient tolerated the procedure well. IMPRESSION: Normal-appearing colon from rectum to cecum with no evidence of colorectal neoplasia. RECOMMENDATIONS: Findings of this examination were discussed with the patient as well as a family. She was advised to have a repeat screening colonoscopy in 10 years.
[2018-11-11 09:29] VITALS: BP 137/73; PULSE 67; RESP 16
== END 2018-11-11 09:45 | disposition home or self-care (01) ==
LOC: ORWHC2ENDO 07:35
PROVIDERS: ATTEND Internal Medicine Gastroenterology
DX: Z12.11 Encounter for screening for malignant neoplasm of colon (principal); Z80.0 Family history of malignant neoplasm of digestive organs; E78.5 Hyperlipidemia, unspecified; F32.9 Major depressive disorder, single episode, unspecified; G47.33 Obstructive sleep apnea (adult) (pediatric); Z79.899 Other long term (current) drug therapy; Z98.1 Arthrodesis status
CPT/HCPCS: J2704; G0105

== ENCOUNTER → 2019-01-31 | Outpatient (CLI) | payer BC ==
--- NOTE | 2019-01-31 18:17 | PN ---
PROGRESS NOTE Angelica is 53, diagnosed having severe symptomatic obstructive sleep apnea. I brought this patient into the sleep center and performed CPAP titration. Her saturation was successful at a pressure of 11 cm of water. Today she is coming in for a compliancy check. She has been using her CPAP every night for the past 2-1/2 to 3 months. Based on the compliance data that was collected over the past 30 days, she has been utilizing her machine approximately 7.6 hours per night, and her CPAP use for more than 4 hours is 29/30. Leak is at 88 L/minute and her AHI is down to 1.5, indicating successful disease treatment. Nevertheless, she is still feeling tired and sleepy during the day. She has already seen improvement, yet the treatment response is not complete. She goes to bed around 9 p.m., wakes up at 5 a.m. in the morning. She has to be at work at 7. Sometimes she feels that she is very drowsy going back to work and she feels sleepy on her way back. She is concerned that she may fall asleep. This is going on despite her excellent use of CPAP. Note that the patient lives in [place] and she drives an hour to [place] back and forth every day. She has never been involved in a motor vehicle accident because of feeling drowsy or sleepy. She takes Effexor for chronic anxiety and depression. She has no other new complaints otherwise for now. REVIEW OF SYSTEMS: Fourteen-point review of systems was done. Still positive for some sleepiness and tiredness despite some improvement. Augusta score remains elevated at 16. She is extremely compliant with CPAP therapy. No sleep paralysis. No hallucinations. No cataplexy. She consumes coffee and caffeine tablets in the morning. No substance use. No alcoholism. No head trauma. No closed-head injury. No other complaints otherwise for now. PHYSICAL EXAMINATION: VITAL SIGNS: BP is 131/78, pulse 83, respirations 16, temperature 98.5, saturation 96% on room air. Weight is 187. Augusta score is 16, saturation 96% on room air. GENERAL APPEARANCE: Calm, comfortable. HEAD: Atraumatic, normocephalic. NECK: Supple. No JVD. No goiter or neck masses. LUNGS: Clear to auscultation. HEART: Heart sounds are regular rate and rhythm. Normal S1, S2. No S3, S4. No murmurs. ABDOMEN: Soft, nontender. No organomegaly. EXTREMITIES: No edema. No cyanosis or clubbing. SKIN: Negative for any wounds or ulcerations. IMPRESSION: 1. Severe symptomatic obstructive sleep apnea with an apnea/hypopnea index of 73, currently on CPAP pressure of 11, with excellent compliancy. 2. Hypersomnia. Despite some improvement, the patient continues to be sleepy and her Augusta score is 16. There is a concern that the patient may fall asleep while driving, as she has an hour-drive back and forth between [place] and [place]. 3. History of depression, on Effexor. PLAN: 1. Advised continuing the CPAP at the same level of pressure. Compliance data was checked and the use has been excellent. 2. Implement good sleep hygiene measures. 3. Extend sleep hours. 4. Proceed with Provigil 200 mg in the morning for stimulation. 5. The patient will contact me back, should she stay somnolent and sleepy. I would say the combination of Provigil and CPAP therapy should improve the patient's symptoms of hypersomnia considerably. Will continue to follow. MMODL / IJN: [id number] /
== END | disposition home or self-care (01) ==

== ENCOUNTER 2019-09-03 11:49 | Emergency (ER) | payer BC ==
[2019-09-03 11:54] VITALS: RESP 18
--- NOTE | 2019-09-03 12:11 | ED ---
General Adult HPI - General Chief complaint: Upper Respiratory Infection Stated complaint: COVID exposure/symptoms Time Seen by Provider: 09/03/19 11:55 Source: patient, RN notes reviewed, old records reviewed Mode of arrival: ambulatory Limitations: no limitations - History of Present Illness Initial comments: 54-year-old female presenting for evaluation of cough. Patient had contact with a suspected case of [place] virus. This person was diagnosed clinically yesterday. This was at an outside facility, uncertain if this patient had a positive test. Patient has had 11 days of cough. She has no history of asthma or COPD. No history of tobacco use. She has no history of CAD, no heart disease, no diabetes, no hypertension. No lower extremity pain or swelling. No recent travel. Denies fever. Complains of a mild sore throat. She completed a course of steroids and antibiotics. She additionally has multiple individuals at the [place] [facility] she works with influenza. - Related Data Home Medications Medication Instructions Recorded Confirmed Venlafaxine HCl [Effexor XR] 75 mg PO 11/11/18 Previous Rx's Medication Instructions Recorded Doxycycline [Vibramycin] 100 mg PO BID 3 Days #14 capsule 09/03/19 Allergies Allergy/AdvReac Type Severity Reaction Status Date / Time No Known Allergies Allergy Verified 09/03/19 11:54 Review of Systems ROS Statement: Those systems with pertinent positive or pertinent negative responses have been documented in the HPI. ROS Other: All systems not noted in ROS Statement are negative. 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 History of Any Multi-Drug Resistant Organisms: None Reported Past Surgical History: Back Surgery Additional Past Surgical History / Comment(s): 2 lumbar laminectomies, C3 to C7 ACDF Past Anesthesia/Blood Transfusion Reactions: No Reported Reaction, Motion Sickness Past Psychological History: Depression Smoking Status: Never smoker Past Alcohol Use History: Occasional Past Drug Use History: None Reported - Past Family History Father Additional Family Medical History / Comment(s): Father is alive at age 77 with history of depression and other mental health issues. Mother Additional Family Medical History / Comment(s): Mother is alive at age 75 with history of myocardial infarction at age 70. Maternal grandfather at age 40 from a myocardial infarction. Paternal grandmother of colon cancer. Brother(s) Additional Family Medical History / Comment(s): Patient has one brother alive and healthy with no major medical problems. Patient does not have any sisters. Patient does not have any children. General Exam Limitations: no limitations General appearance: alert, in no apparent distress Head exam: Present: atraumatic, normocephalic Eye exam: Present: normal appearance, PERRL ENT exam: Present: normal exam. Absent: normal oropharynx (Mild pharyngeal erythema, no tonsillar swelling or exudate) Neck exam: Present: normal inspection. Absent: tenderness, meningismus Respiratory exam: Present: normal lung sounds bilaterally, other (Bronchospastic cough). Absent: respiratory distress, wheezes, rales, rhonchi Cardiovascular Exam: Present: regular rate, normal rhythm, normal heart sounds GI/Abdominal exam: Present: soft. Absent: distended, tenderness, guarding, rebound Extremities exam: Present: normal inspection, normal capillary refill. Absent: pedal edema, calf tenderness Neurological exam: Present: alert, oriented X3, CN II-XII intact. Absent: motor sensory deficit Psychiatric exam: Present: normal affect, normal mood Skin exam: Present: warm, dry, intact. Absent: cyanosis, diaphoretic Course Vital Signs 09/03/19 11:50 Temperature 98.9 F Pulse Rate 75 Respiratory 18 Rate Blood Pressure 173/94 O2 Sat by Pulse 99 Oximetry Medical Decision Making - Medical Decision Making 54-year-old female with cough and concern for rotavirus. Patient is informed of the current testing standards which are limited to patient's with severe disease or being admitted. We are not currently routinely testing and laboratory patient's who are being discharged. Patient has stable vitals she is well-appearing, she has good air entry with no respiratory distress. She does have a bronchospastic cough. She's had no fever and is afebrile in the emergency department. She is kept in isolation while in the emergency department, all precautions including and 95, full gown and eye protection are used to evaluate this patient. Single view chest x-rays obtained which is negative for focal pneumonia, no findings consistent with chronic virus. Patient is instructed to self quarantined for 2 weeks. She is informed that this could be [place] virus and we are treating it as a presumptive diagnosis. She was given quarantined instructions. She will return with worsening or changing symptoms. Disposition Clinical Impression: Bronchitis Disposition: HOME SELF-CARE Condition: Good Instructions (If sedation given, give patient instructions): Upper Respiratory Infection (ED) Additional Instructions: Please self quarantine for 14 days. Please return with worsening or changing symptoms. Prescriptions: Doxycycline [Vibramycin] 100 mg PO BID 3 Days #14 capsule Is patient prescribed a controlled substance at d/c from ED?: No Referrals: Melissa Diaz MD [Primary Care Provider] - 1-2 days Time of Disposition: 12:15
--- NOTE | 2019-09-03 12:37 | XR ---
EXAMINATION TYPE: XR chest 1V DATE OF EXAM: 09/03/2019 HISTORY: cough. REFERENCE: Previous study dated 01/20/2017 there has been an ACDF of the lower cervical spine. There is chronic elevation of the right hemidiaphragm. Heart size upper limits of normal. Lungs are clear. Pleural spaces are clear. IMPRESSION: I DO NOT SEE EVIDENCE OF ACUTE INTRATHORACIC DISEASE.
[2019-09-03 13:05] VITALS: BP 146/91; PULSE 81; TEMP 98.3
== END 2019-09-03 13:05 | disposition home or self-care (01) ==
LOC: EC 11:49
DX: J40 Bronchitis, not specified as acute or chronic (principal); Z20.828 Contact with and (suspected) exposure to other viral communicable diseases; M19.90 Unspecified osteoarthritis, unspecified site; F32.9 Major depressive disorder, single episode, unspecified; Z79.899 Other long term (current) drug therapy; Z98.1 Arthrodesis status
CPT/HCPCS: 71045; 99283

== ENCOUNTER → 2020-04-23 | Outpatient (CLI) | payer BC ==
--- NOTE | 2020-04-23 14:10 | PN ---
PROGRESS NOTE Angelica is a very pleasant 54-year-old female patient coming in for an annual check regarding obstructive sleep apnea. The patient has a case of severe STEPHANIE with an AHI of 73, and the patient is utilizing CPAP at a pressure of 11 cm of water. Note that during her last evaluation, the patient was still having some ongoing hypersomnia and sleepiness despite showing adequate compliance and at that time, I added Provigil at a dose of 200 mg in the morning. With the addition of Provigil, the patient felt better and she is able to function better during the day without having to fall asleep. For now, I checked the compliancy data on her machine and based on a 30-day compliancy, the patient is being treated at a pressure of 11 cm of water and she is averaging around 8.6 hours of CPAP use per night and her leak factor is around 4 L/minute and her AHI is down to 1.3. This is considered to be successful treatment for now. She is using a full-face mask. No significant respiratory difficulties. No nighttime chest pain or shortness of breath or heartburn. She takes Provigil somewhere between half tablet to 1 tablet in the morning and this has helped her quite a bed and staying awake and alert during the day. Her current mask is an F20 small-sized full-face mask. She also takes Effexor for chronic anxiety and depression. Her symptoms of anxiety and depression are well treated. The patient is taking Effexor 37.5 mg on a daily basis. No other new complaints. She has lost around 4 pounds since her last evaluation. PHYSICAL EXAMINATION: Her current vital signs are as follows, her BP is 137/89, pulse 62, respirations 16, temperature 98.3, saturation 98% on room air. Height is 5, 4, weight is 183 and BMI 31.4. GENERAL APPEARANCE: Calm, comfortable, no acute distress. HEAD: Atraumatic, normocephalic. NECK: Supple. No JVD, no goiter, no neck masses. LUNGS: Clear to auscultation. HEART: Heart sounds are regular rate and rhythm, normal S1, S2. No murmurs. ABDOMEN: Soft, nontender, no organomegaly. EXTREMITIES: No edema, no cyanosis or clubbing. REVIEW OF SYSTEMS: Fourteen-point review of system was done and the positive findings are mentioned above in history of present illness. IMPRESSION: 1. STEPHANIE severe with an AHI of 73. The patient is adequately treated with a CPAP pressure of 11 cm of water. 2. Residual hypersomnia despite being well treated with CPAP therapy in adequate compliancy. The patient remains on Provigil somewhere between 100-200 mg on a daily basis. Her current Hull score is down to 12. She is able to function and her sleep quality is improved and the patient seems to be much more alert and awake during the day. 3. History of depression and anxiety maintained on Effexor. PLAN: Continue same treatment. No need for any pressure adjustments on her CPAP machine. Keep this AirFit F20 full-face mask for now. Provigil will be refilled and the patient will be seen back in a year's time. She has lost around 4 pounds. Her sleep hygiene measures are all adequate. No active issues for now and the treatment is successful. MMODL / IJN: [id number] /
== END | disposition home or self-care (01) ==
LOC: SLEEP 10:16
PROVIDERS: ATTEND Internal Medicine Critical Care Medicine
DX: G47.33 Obstructive sleep apnea (adult) (pediatric) (principal); Z99.89 Dependence on other enabling machines and devices; Z86.59 Personal history of other mental and behavioral disorders; Z79.899 Other long term (current) drug therapy

== ENCOUNTER → 2020-07-23 | Outpatient (CLI) | payer BC ==
--- NOTE | 2020-07-23 13:34 | MM ---
Reason for exam: screening (asymptomatic). Last mammogram was performed 2 years ago. History: Patient is postmenopausal and is nulliparous. Family history of breast cancer in aunt at age 64. US discontinued breast bx RT of the right breast, January 15, 2015. Benign cyst aspiration of the right breast. Took hormonal contraceptives for 15 years beginning at age 17. Physical Findings: A clinical breast exam by your physician is recommended on an annual basis and results should be correlated with mammographic findings. MG Screening Mammo w CAD Bilateral CC and MLO view(s) were taken. Prior study comparison: July 19, 2018, bilateral MG screening mammo w CAD. January 02, 2015, right breast MG diagnostic mammo RT w CAD. The breast tissue is heterogeneously dense. This may lower the sensitivity of mammography. Asymmetric breast tissue retroglandular left breast 10-11cm from nipple on MLO. This finding is changed when compared with previous exams. ASSESSMENT: Incomplete: need additional imaging evaluation, BI-RAD 0 RECOMMENDATION: Ultrasound of the left breast. [facility] will attempt to contact patient to return for ultrasound.
== END | disposition home or self-care (01) ==
LOC: RADMAMWWP 07:04
PROVIDERS: ATTEND Family Medicine
DX: Z12.31 Encounter for screening mammogram for malignant neoplasm of breast (principal)
CPT/HCPCS: 77067

== ENCOUNTER → 2020-07-25 | Outpatient (CLI) | payer BC ==
--- NOTE | 2020-07-25 10:47 | USB ---
Reason for exam: additional evaluation requested from abnormal screening. History: Patient is postmenopausal and is nulliparous. Family history of breast cancer in aunt at age 64. US discontinued breast bx RT of the right breast, January 15, 2015. Benign cyst aspiration of the right breast. Took hormonal contraceptives for 15 years beginning at age 17. Physical Findings: Nurse did not find any significant physical abnormalities on exam. US Breast Workup LT Left complete breast ultrasound includes all four quadrants, the retroareolar region and axilla. Finding demonstrates a 7 x 5 x 3mm cystic cluster at 11 o'clock. These results were verbally communicated with the patient and result sheet given to the patient on 07/25/20. ASSESSMENT: Probably benign, BI-RAD 3 RECOMMENDATION: Follow-up diagnostic mammogram and ultrasound of the left breast in 6 months.
== END | disposition home or self-care (01) ==
LOC: RADUSWWP 09:31
PROVIDERS: ATTEND Family Medicine
DX: R92.8 Other abnormal and inconclusive findings on diagnostic imaging of breast (principal)

== ENCOUNTER → 2021-02-24 | Outpatient (CLI) | payer BC ==
--- NOTE | 2021-02-24 11:03 | ECHOS ---
STRESS ECHOCARDIOGRAM DATE OF STUDY: 02/24/2021 INDICATIONS: Chest pain. BASELINE HEART RATE: @@ BASELINE BLOOD PRESSURE: @@ MAXIMUM HEART RATE: @@ MAXIMUM BLOOD PRESSURE: @@ 85% MPHR: @@ 100% MPHR: @@ METS: @@ MAXIMUM STAGE REACHED: @@ TOTAL EXERCISE TIME: @@ CLINICAL INFORMATION: STRESS DATA: Heart rate is 82, pressure is 154/90 mmHg. Baseline EKG showed sinus mechanism. The patient exercised on the treadmill according to Cliff protocol for a total of 7 minutes and achieved about 8 METS. Max heart rate was 158, which is about 95% of maximum predicted heart rate. Maximum blood pressure was 250/66 mmHg. Clinically the patient developed about [address]-segment depression, most prominent on recovery. ECHOCARDIOGRAM IMAGES: Echocardiogram images from parasternal long axis view, parasternal short axis view, apical 4-chamber and apical 2-chamber were obtained as the baseline images at the peak of the heart rate as well as on recovery. The echocardiogram images showed good augmentation in the left ventricular systolic function without any evidence of wall motion abnormalities concerning for ischemia. CONCLUSION: 1. Good exercise tolerance. 2. Abnormal EKG in response to exercise with horizontal ST-segment depression on recovery. 3. Normal echocardiogram in response to exercise without any evidence of wall motion abnormalities concerning for ischemia. MMODL / IJN: [id number] /
== END | disposition home or self-care (01) ==
LOC: RADNMMAIN 08:57
PROVIDERS: ATTEND Family Medicine
DX: R94.31 Abnormal electrocardiogram [ECG] [EKG] (principal)
CPT/HCPCS: 93351

== ENCOUNTER → 2021-02-28 | Outpatient (CLI) | payer BC ==
--- NOTE | 2021-02-28 09:15 | MM ---
Reason for exam: follow-up at short interval from prior study. Last mammogram was performed 7 months ago. History: Patient is postmenopausal and is nulliparous. Family history of breast cancer in aunt at age 64. US discontinued breast bx RT of the right breast, January 15, 2015. Benign cyst aspiration of the right breast, 2014. Took hormonal contraceptives for 15 years beginning at age 17. Physical Findings: Nurse did not find any significant physical abnormalities on exam. MG Diagnostic Mammo LT w CAD CC and MLO view(s) were taken of the left breast. Prior study comparison: July 23, 2020, bilateral MG screening mammo w CAD. July 19, 2018, bilateral MG screening mammo w CAD. The breast tissue is heterogeneously dense. This may lower the sensitivity of mammography. There is chronic nodularity in the left breast, stable. These results were verbally communicated with the patient and result sheet given to the patient on 02/28/21. ASSESSMENT: Incomplete: need additional imaging evaluation, BI-RAD 0 RECOMMENDATION: Ultrasound of the left breast.
--- NOTE | 2021-02-28 09:16 | USB ---
Reason for exam: follow-up at short interval from prior study. History: Patient is postmenopausal and is nulliparous. Family history of breast cancer in aunt at age 64. US discontinued breast bx RT of the right breast, January 15, 2015. Benign cyst aspiration of the right breast, 2014. Took hormonal contraceptives for 15 years beginning at age 17. US Breast Limited LT Left limited breast ultrasound including focal area of concern, retroareolar and axilla demonstrates no cystic or solid lesion seen. These results were verbally communicated with the patient and result sheet given to the patient on 02/28/21. ASSESSMENT: Benign, BI-RAD 2 RECOMMENDATION: Follow-up diagnostic mammogram of both breasts in 6 months. Back on schedule.
== END | disposition home or self-care (01) ==
LOC: RADMAMWWP 07:37
DX: N63.20 Unspecified lump in the left breast, unspecified quadrant (principal); Z78.0 Asymptomatic menopausal state; Z80.3 Family history of malignant neoplasm of breast; Z79.3 Long term (current) use of hormonal contraceptives
CPT/HCPCS: 77065

== ENCOUNTER → 2021-05-06 | Outpatient (CLI) | payer BC ==
--- NOTE | 2021-05-06 14:57 | PN ---
PROGRESS NOTE Angelica is a 55-year-old female patient who is coming in for an annual check regarding obstructive sleep apnea. The patient continues to work at the [employer] in [place]. She drives back and fourth from to [place]. It is an hour drive and in the morning she was having trouble driving and for that reason I gave her Provigil 200 mg to keep her level of alertness high. This has helped her quite a bed and she is asking for refills. She is taking the medication without any major side effects. Note that in September of 2020, the patient was infected with Covid. Since then, she has been having some shortness of breath and fatigue. Her shortness of breath has been evaluated by chest x-ray and a stress echocardiogram, both of them being within normal limits. She wants to come and see me back at the pulmonary clinic for ongoing shortness of breath. Her shortness of breath is exertional. No angina. No palpitations. No cough or sputum production. No pleurisy or hemoptysis. No previous history of DVT or pulmonary embolism. She continues to be compliant with CPAP therapy. The patient is on a pressure of 11 cm of water. She is utilizing the machine more than 4 hours 100% of the time. Leak is around 5 L/minute and her AHI is down to 1.9 while on treatment, indicating successful treatment. Henrietta score is down to 11. REVIEW OF SYSTEMS: Fourteen-point review of system was done. Positive findings are mentioned in history of present illness. MEDICATION: Includes Effexor 37.5 mg 1 tablet a day. PHYSICAL EXAMINATION: Blood pressure is 143/72, pulse 72, respirations 16, temperature 97.0. Saturation 98% on room air. Height is 5 feet, 4 inches. Weight is 188. Henrietta score is 11. BMI 31.7. GENERAL APPEARANCE: Calm, comfortable. Head is atraumatic, normocephalic. NECK: Supple. No JVD. No goiter or neck masses. Mallampati class 4. LUNGS: Clear to auscultation. HEART: Heart sounds are regular rate and rhythm. Normal S1, S2. No murmurs. ABDOMEN: Soft, no organomegaly. EXTREMITIES: No edema. No cyanosis or clubbing. NEUROLOGIC: Awake and alert. There is no focal neurological deficit. IMPRESSION: 1. Chronic hypersomnia improved. Henrietta score is 11. The patient is currently on a combination of CPAP and Provigil. 2. Obstructive sleep apnea, currently on CPAP therapy at a pressure of 11 cm of water. Treatment is successful and compliance data was checked. 3. History of depression. PLAN: 1. Continue CPAP therapy at the same level of pressure. 2. Supplies will be refilled. 3. The patient will be given a refill on her Provigil. 4. She expressed concerns about some shortness of breath, post Covid which could be essentially deconditioning. The patient was asked to come and see me back at the pulmonary clinic for further advice and a full pulmonary function test. We will continue to follow. Her Provigil was refilled and the patient will continue to follow. MMDAXAL / LELAN: [id number] /
== END ==
LOC: SLEEP 13:03
PROVIDERS: ATTEND Internal Medicine Critical Care Medicine
DX: G47.33 Obstructive sleep apnea (adult) (pediatric) (principal); F32.A Depression, unspecified; Z99.89 Dependence on other enabling machines and devices

== ENCOUNTER → 2022-04-14 | Outpatient (CLI) | payer BC ==
--- NOTE | 2022-04-14 13:12 | US ---
EXAMINATION TYPE: US gallbladder DATE OF EXAM: 04/14/2022 COMPARISON: CT 08/26/2018 CLINICAL HISTORY: R10.11 RUQ pain. RUQ pain for 2 months, nausea TECHNIQUE: Multiple sonographic images of the right upper quadrant are obtained. FINDINGS: EXAM MEASUREMENTS: Liver Length: 17.6 cm Gallbladder Wall: 0.3 cm CBD: 0.9 cm Right Kidney: 10.3 x 4.0 x 4.6 cm BUSINESS APPLICATIONS MANAGER NOTES:*technical limitations due to large amount of overlying bowel content Pancreas: Obscured by bowel gas Liver: heterogeneous. Hypoechoic area = 4.0 x 2.9 x 4.6cm. Hyperechoic area = 1.0 x 1.0 x 0.9cm Gallbladder: filled with stones Evidence for sonographic Nelson's sign: yes CBD: appears dilated Right Kidney: no evidence of hydronephrosis IMPRESSION: 1. Hepatomegaly. There is heterogeneity within the liver compatible some mild fatty infiltration. 2. Hypoechoic area within the liver is not a simple cyst. Follow-up is recommended. Solid lesion is n ot excluded. 3. Small 1 cm hyperechoic area within the liver could be a hemangioma. This can be followed. 4. Cholelithiasis.
== END | disposition home or self-care (01) ==
LOC: RADUSWWP 12:19
PROVIDERS: ATTEND Surgery
DX: K80.20 Calculus of gallbladder without cholecystitis without obstruction (principal); K76.0 Fatty (change of) liver, not elsewhere classified; R16.0 Hepatomegaly, not elsewhere classified
CPT/HCPCS: 76705

== ENCOUNTER → 2022-04-14 | Outpatient (CLI) | payer BC ==
--- NOTE | 2022-04-14 13:25 | MM ---
Reason for Exam: Follow-up at short interval from prior study. Last mammogram was performed 1 year(s) and 9 month(s) ago. Patient History: Menarche at age 13. Patient has no children. Postmenopausal. Hormonal Contraceptives, starting at age 17 for 15 years. 2014, Benign Cyst Aspiration on the right side. 01/15/2015, US discontinued breast bx RT on the right side. Maternal aunt had breast cancer, age 64. Risk Values: Rosario 5 year model risk: 1.3%. NCI Lifetime model risk: 9.1%. Tissue Density: The breast tissue is heterogeneously dense. This may lower the sensitivity of mammography. Findings: Analyzed By CAD. There is an oval density currently measuring 0.5 x 1.1 cm. Prior measurement up to 0.9 cm. This appears to have smooth borders. The benign short-term follow-up is recommended. Right breast appears stable. Overall Assessment: Probably benign, BI-RAD 3 Management: Diagnostic Mammogram of the left breast in 6 months. A clinical breast exam by your physician is recommended on an annual basis and results should be correlated with mammographic findings. This exam should not preclude additional follow-up of suspicious palpable abnormalities. Results were given to the patient verbally at the time of exam. Electronically signed and approved by: Bg Milligan D.O. Radiologis
== END | disposition home or self-care (01) ==
LOC: RADMAMWWP 12:15
PROVIDERS: ATTEND Family Medicine
DX: R92.8 Other abnormal and inconclusive findings on diagnostic imaging of breast (principal); Z78.0 Asymptomatic menopausal state; Z80.3 Family history of malignant neoplasm of breast
CPT/HCPCS: 77062; 77066

== ENCOUNTER → 2022-05-08 | Outpatient (CLI) | payer BC ==
--- NOTE | 2022-05-08 15:11 | MR ---
EXAMINATION TYPE: MR liver wo/w con DATE OF EXAM: 05/08/2022 COMPARISON: Ultrasound 04/14/2022. CT 08/26/2018 HISTORY: 56-year-old female D37.6, NEOPLASM OF UNCERTAIN BEHAVIOR OF LIVER. Ultrasound showing a 4.6 x 4.0 x 2.9 cm hypoechoic lesion centrally. Also, 1 cm echogenic lesion right liver lobe posteriorly. TECHNIQUE: Multiplanar, multisequence images of the abdomen were obtained before and after administra tion of 9 mL intravenous Gadavist gadolinium contrast. FINDINGS: Tiny hiatal hernia. No pleural effusion. Liver mildly enlarged at 19.5 cm. There is some heterogeneous loss of signal throughout the liver sug gesting mild fatty infiltration. There is a mildly T2 hyperintense lesion within the central aspect of the liver that does not seem to lose significant signal on out of phase T1-weighted sequence. This shows bright signal on DWI. It me asures 3.8 cm craniocaudal by 4.2 cm wider by 3.2 cm AP. It enhances early and becomes slightly more difficult to see on later phases of imaging. There is a 1.3 cm central scar that enhances on the late r phases. Approximately 7 additional T2 hyperintense lesions are present scattered throughout the liver with va rying sizes, measuring up to 1.1 cm. Some of these show subtle peripheral nodular enhancement while o thers represent benign cysts. Bile duct is mildly dilated at 9 mm. Mild central hepatic biliary ductal dilatation as well. However, there is normal distal tapering and no abnormal filling defect identified. Gallbladder is collapsed. Portal venous system is patent. Adrenal glands, left kidney, spleen, and pancreas within normal limits. Tiny 7 mm cortical cyst lateral right kidney. Symmetric uptake and excretion of contrast from both ki dneys. No dilated small bowel, ascites fluid, or abdominal lymphadenopathy, or other gross bowel abnormality seen. IMPRESSION: 1. A 4.2 cm centrally located mass within the liver shows mild T2 hyperintensity, early enhancement, and becomes slightly more difficult to see on later contrast sequences. There is also a late enhancin g central scar. 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 As a preca utionary measure, 6 month follow-up special MRI with Eovist can confirm. 2. Mild hepatomegaly and mild hepatic steatosis. Scattered small cysts and hemangiomas are also prese nt in the liver measuring up to 1.1 cm. 3. Mildly dilated bile duct up to 9 mm probably chronic for the patient. Correlate with alkaline phos phatase and bilirubin levels. 4. Tiny hiatal hernia.
== END | disposition home or self-care (01) ==
LOC: RADMRIMAIN 13:13
PROVIDERS: ATTEND Surgery
DX: D37.6 Neoplasm of uncertain behavior of liver, gallbladder and bile ducts (principal); K76.0 Fatty (change of) liver, not elsewhere classified; R16.0 Hepatomegaly, not elsewhere classified; K83.8 Other specified diseases of biliary tract; K44.9 Diaphragmatic hernia without obstruction or gangrene
CPT/HCPCS: 74183; A9585

== ENCOUNTER 2022-06-22 10:10 | Day surgery (SDC) | payer BC ==
[~2022-06-22 10:10] MED LIST changes: +ACETAMINOPHEN TAB 500 MG TAB PO PRN; +DEXAMETHASONE SOD PHOSPHATE 4 MG/ML 1 ML VIAL IV ONE; +HEPARIN SODIUM,PORCINE/PF 5,000 UNIT/0.5 ML SYRINGE SQ PRN; +MIDAZOLAM 2 MG/2 ML VIAL IV PRN; +ONDANSETRON 4 MG/2 ML VIAL IVP ONE; +SCOPOLAMINE 1 MG/72 HR PATCH TRANSDERM ONE
--- NOTE | 2022-06-22 10:18 | P.GSHP ---
History of Present Illness H&P Date: 06/22/22 Chief Complaint: Chronic cholecystitis 56-year-old female seen in the office in March with right upper quadrant pain after meals. Patient with history of gallbladder disease. Repeat ultrasound showed gallstones but also showed a liver abnormality. She then went for a li rosaura MRI which suggested the presence of focal nodular hyperplasia. Six-month follow-up study is planned. Patient still having increased symptoms right upper quadrant pain. Here today for cholecystectomy. 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 USES CPAP History of Any Multi-Drug Resistant Organisms: None Reported Past Surgical History: Back Surgery Additional Past Surgical History / Comment(s): 2 lumbar laminectomies. Fusion C3 to C7 ACDF. DIAGNOSTIC LAPROSCOPY. Past Anesthesia/Blood Transfusion Reactions: No Reported Reaction, Motion Sickness Past Psychological History: Depression Smoking Status: Never smoker Past Alcohol Use History: Occasional Additional Past Alcohol Use History / Comment(s): Patient is a lifelong nonsmoker. No illicit drug use. She drinks alcohol socially. 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 Past Drug Use History: None Reported - Past Family History Father Additional Family Medical History / Comment(s): Father is alive at age 77 with history of depression and other mental health issues. Mother Family Medical History: No Reported History Additional Family Medical History / Comment(s): Mother is alive at age 75 with history of myocardial infarction at age 70. Maternal grandfather at age 40 from a myocardial infarction. Paternal grandmother of colon cancer. Brother(s) Additional Family Medical History / Comment(s): Patient has one brother alive and healthy with no major medical problems. Patient does not have any sisters. Patient does not have any children. Medications and Allergies Home Medications Medication Instructions Recorded Confirmed Type Multivitamins, Thera [Multivitamin 1 tab PO DAILY 06/19/22 06/19/22 History (formulary)] Phoenix-3/Dha/Epa/Fish Oil [Fish Oil 1 tab PO DAILY 06/19/22 06/19/22 History 1,000 mg Softgel] Venlafaxine HCl [Effexor] 37.5 mg PO QAM 06/19/22 06/19/22 History modafiniL [Provigil] 100 mg PO MOTUWETHFR 06/19/22 06/19/22 History Allergies Allergy/AdvReac Type Severity Reaction Status Date / Time No Known Allergies Allergy Verified 09/03/19 11:54 Surgical - Exam Physical exam: General: Well-developed, well-nourished HEENT: Normocephalic, sclerae nonicteric Abdomen: Nontender, nondistended Extremities: No edema Neuro: Alert and oriented Assessment and Plan (1) Chronic cholecystitis Narrative/Plan: 56-year-old female with chronic cholecystitis. We'll proceed with laparoscopic, possible open cholecystectomy at this time. Risks of bleeding, infection, bile leak, bile duct injury, retained common bile duct stone, trocar injury, conversion to an open procedure, hernia, anesthesia related complications were reviewed. The patient understands and wishes to proceed. Status: Acute Code(s): K81.1 - CHRONIC CHOLECYSTITIS SNOMED Code(s): 99941326
[2022-06-22 10:33] VITALS: TEMP 97.8
[2022-06-22] MEDS ORDERED: MIDAZOLAM 2 MG/2 ML VIAL ONE (10:56)
[2022-06-22] MEDS ORDERED: GLYCOPYRROLATE 0.2 MG/ML 2 ML VIAL ONE (10:56)
[2022-06-22] MEDS ORDERED: ROCURONIUM 10 MG/ML (5 ML VIAL) IV ONE (10:56)
[2022-06-22] MEDS ORDERED: fentaNYL (PF) 50 MCG/ML 2 ML AMP ONE (10:56)
[2022-06-22] MEDS ORDERED: PHENYLEPHRINE-0.9% NACL SYG 1,000 MCG/10 ML SYRINGE ONE (10:56)
[2022-06-22] MEDS ORDERED: SUCCINYLCHOLINE CHLORIDE 200 MG/10 ML VIAL IV ONE (10:56)
[2022-06-22] MEDS ORDERED: NEOSTIGMINE 1 MG/ML 10 ML VIAL ONE (10:56)
[2022-06-22] MEDS ORDERED: LIDOCAINE 2% INJ 20 MG/ML (2 ML VIAL) ONE (10:56)
[2022-06-22] MEDS ORDERED: PROPOFOL 10 MG/ML 20 ML VIAL IV ONE (10:56)
[2022-06-22] MEDS ORDERED: BUPIVACAIN-EPI 0.25%-1:200,000 30 ML VIAL SQ ONE ×2 (10:57→11:25)
--- NOTE | 2022-06-22 11:56 | P.OP ---
Date of Procedure: 06/22/22 Procedure(s) Performed: PREOPERATIVE DIAGNOSIS: Chronic cholecystitis POSTOPERATIVE DIAGNOSIS: Same PROCEDURE: Laparoscopic cholecystectomy SURGEON: Christine EBL: Minimal see anesthesia record ANESTHESIA: Gen. COMPLICATIONS: None OPERATIVE PROCEDURE: The patient was brought and placed on the operating room table in the supine position. The patient was placed under general anesthesia at that time. The abdomen was prepped and draped in the usual sterile fashion. A small vertical infraumbilical incision was made. The fascia was grasped with the Ghada forceps. The fascia was retracted anteriorly. The Veress needle was advanced into the peritoneal cavity. The saline drop test was normal. Insufflation took place up to 15 mmHg. A 5 mm optical trocar was advanced and the peritoneal cavity. 2 additional 5 mm trochars were placed in the right upper quadrant under direct visualization. A 12 mm trocar was advanced into the epigastric incision site. The gallbladder was retracted superiorly and laterally. The shape of the gallbladder was somewhat atypical. The patient had a large stone in the undescended the gallbladder. The patient's gallbladder quickly tapered into a long slender infundibulum. Patient's cystic duct likewise was quite long. The junction with the common bile duct and common hepatic duct was noted. The critical view of safety was achieved after blunt dissection. The cystic duct was then divided after placement of 3 12 mm clips on the patient's side and one on the specimen side. The cystic artery was identified and clipped as well. A small vessel was seen along the gallbladder fossa and clipped as well. The gallbladder was then removed from the liver bed using electrocautery. The gallbladder was then removed from the epigastric trocar site with an Endo Catch bag. The gallbladder fossa was irrigated with saline. There was no evidence of any bleeding or biliary drainage seen. The fascia at the 12 millimeter site was closed using a Berlin-Rusty 0 Vicryl stitch. The trochars were then removed. The skin at all 4 sites was closed using a 4-0 Monocryl stitch. Skin glue was utilized on the incision sites. At the end of this procedure the sponge and needle counts were correct. DISPOSITION: Stable to the recovery room
[2022-06-22] MEDS ORDERED: ACETAMINOPHEN TAB 325 MG TAB PO SCH (12:00)
[2022-06-22] MEDS: HYDROmorphone 0.5 MG/0.5 ML SYRINGE IVP PRN ×4 (12:21→13:20)
[2022-06-22] MEDS ORDERED: KETOROLAC 15 MG/ML 1 ML VIAL IVP ONE (12:37)
[2022-06-22] MEDS ORDERED: ONDANSETRON 4 MG/2 ML VIAL ONE (14:12)
[2022-06-22] MEDS ORDERED: ONDANSETRON 4 MG/2 ML VIAL IVP ONE (14:15)
[2022-06-22 14:38] VITALS: BP 128/72; PULSE 59; RESP 18
[2022-06-22] MEDS ORDERED: IBUPROFEN 600 MG TAB PO SCH (15:00)
== END 2022-06-22 14:57 | disposition home or self-care (01) ==
LOC: OR 10:10
PROVIDERS: ATTEND Surgery
DX: K81.1 Chronic cholecystitis (principal); E78.5 Hyperlipidemia, unspecified; M19.90 Unspecified osteoarthritis, unspecified site; F32.A Depression, unspecified; G47.33 Obstructive sleep apnea (adult) (pediatric); M43.22 Fusion of spine, cervical region; Z82.49 Family history of ischemic heart disease and other diseases of the circulatory system
CPT/HCPCS: 47562; J2250; J0330; J1100; J2710; J0690; J2405; J3010; J1885; J2370; J2704; J1170; J1644; J2001; 88304

== ENCOUNTER → 2022-10-28 | Outpatient (CLI) | payer BC ==
--- NOTE | 2022-10-28 08:45 | MM ---
Reason for Exam: Follow-up at short interval from prior study. Last screening mammogram was performed 6 month(s) ago. Patient History: Menarche at age 13. Patient has no children. Postmenopausal. Hormonal Contraceptives, starting at age 17 for 15 years. 2014, Benign Cyst Aspiration on the right side. 01/15/2015, US discontinued breast bx RT on the right side. Maternal aunt had breast cancer, age 64. Paternal aunt had breast cancer, age 60. Paternal aunt had breast cancer, age 60. Risk Values: Rosario 5 year model risk: 1.4%. NCI Lifetime model risk: 8.9%. Prior Study Comparison: 07/23/2020 Bilateral Screening Mammogram, [facility]. 02/28/2021 Left Diagnostic Mammogram, [facility]. 04/14/2022 Bilateral MG 3D diag mammo w/cad JOSH, [facility]. Tissue Density: Left: The breast tissue is heterogeneously dense. This may lower the sensitivity of mammography. Findings: Analyzed By CAD. Redemonstration of focal asymmetry 12.3 cm from the nipple medial aspect measuring 12 x 8 mm on CC view and up to 11 cm from nipple on MLO view posterior nipple line. This felt to be mildly increased in size from prior imaging. Redemonstration of focal asymmetry 12.3 cm from the nipple medial aspect measuring 12 x 8 mm on CC view and up to 11 cm from nipple on MLO view posterior nipple line. This felt to be mildly increased in size from prior imaging. The right breast is without suspicious mass or calcification. Overall Assessment: Incomplete: need additional imaging evaluation, BI-RAD 0 Management: Diagnostic Breast Ultrasound of the left breast. Results were given to the patient verbally at the time of exam. Patient should continue monthly self-breast exams. A clinical breast exam by your physician is recommended on an annual basis. This exam should not preclude additional follow-up of suspicious palpable abnormalities. Note on Rosario scores and lifetime risk: 1. A Rosario score greater than 3% is considered moderate risk. If this is the case, consider specialist referral to assess eligibility for a risk reducing agent. 2. If overall lifetime risk for the development of breast cancer is 20% or higher, the patient may qualify for future screening with alternating mammogram and breast MRI. Electronically signed and approved by: Robert Corbett DO
--- NOTE | 2022-10-28 09:18 | USB ---
Reason for Exam: Additional evaluation requested from abnormal screening. Patient History: Menarche at age 13. Patient has no children. Postmenopausal. Hormonal Contraceptives, starting at age 17 for 15 years. 2014, Benign Cyst Aspiration on the right side. 01/15/2015, US discontinued breast bx RT on the right side. Maternal aunt had breast cancer, age 64. Paternal aunt had breast cancer, age 60. Paternal aunt had breast cancer, age 60. Risk Values: Rosario 5 year model risk: 1.4%. NCI Lifetime model risk: 8.9%. Technique: Method: Targeted. Prior Study Comparison: 07/23/2020 Bilateral Screening Mammogram, [facility]. 02/28/2021 Left Diagnostic Mammogram, [facility]. 04/14/2022 Bilateral MG 3D diag mammo w/cad JOSH, [facility]. Findings: The upper outer quadrant of the left breast, the axilla of the left breast and the retroareolar of the left breast were scanned. Imaged: Ultrasound imaging of: Upper inner , the retroareolar region and axilla. No evidence for organizing fluid collection or mass. Overall Assessment: Probably benign, BI-RAD 3 Management: Diagnostic Breast Ultrasound of the left breast in 6 months. A clinical breast exam by your physician is recommended on an annual basis and results should be correlated with mammographic findings. This exam should not preclude additional follow-up of suspicious palpable abnormalities. Results were given to the patient verbally at the time of exam. Electronically signed and approved by: Robert Crobett DO
== END | disposition home or self-care (01) ==
LOC: RADMAMWWP 08:13
PROVIDERS: ATTEND Family Medicine
DX: N60.01 Solitary cyst of right breast (principal); N63.21 Unspecified lump in the left breast, upper outer quadrant; Z78.0 Asymptomatic menopausal state; Z80.3 Family history of malignant neoplasm of breast
CPT/HCPCS: 77061; 77065

== ENCOUNTER → 2023-08-20 | Outpatient (CLI) | payer BC ==
--- NOTE | 2023-08-20 10:27 | CT ---
EXAMINATION TYPE: CT abdomen w con DATE OF EXAM: 08/20/2023 COMPARISON: 08/26/2018. HISTORY: Right-sided abdominal pain with hypoechoic area on liver with history of recent gallbladder removal. CT DLP: 800.10 mGycm Automated exposure control for dose reduction was used. TECHNIQUE: Helical acquisition of images was performed from the lung bases through the top of iliac crest to include entire abdomen. CONTRAST: Performed with Oral Contrast and with IV Contrast, patient injected with 100 mL of Isovue 300. FINDINGS: LUNG BASES: No significant abnormality is appreciated. LIVER/GB: Enhancing mass within segment 8 of the liver immediately abutting the IVC measures approxim ately 4.5 x 3.4 cm and is not significantly changed since the previous examination and is most likely benign given its long-term stability. There is mild patchy hypoattenuation seen throughout the liver which is compatible with fatty liver infiltration. Unchanged hypoattenuating area along the posterio r margin of the right lobe of the liver in segment 6 measuring 1.2 cm. This is also most likely benig n given its long-term stability. The gallbladder is surgically absent. PANCREAS: No significant abnormality is seen. SPLEEN: No significant abnormality is seen. ADRENALS: No significant abnormality is seen. KIDNEYS: No significant abnormality is seen. BOWEL: There is a small sliding hiatal hernia. There are no dilated loops of bowel or abnormal appea leonard to loops of bowel in the visualized abdomen. LYMPH NODES: No significant abnormality is seen. OSSEOUS STRUCTURES: No significant abnormality is seen. FREE AIR: No free air is visualized. OTHER: IMPRESSION: 1. NO ACUTE PROCESS SEEN WITHIN THE ABDOMEN. 2. LIVER LESIONS DESCRIBED ABOVE ARE MOST LIKELY BENIGN GIVEN THEIR LONG-TERM STABILITY. 3. HEPATIC STEATOSIS. 4. SMALL HIATAL HERNIA.
== END | disposition home or self-care (01) ==
LOC: RADCTMAIN 07:53
PROVIDERS: ATTEND Family Medicine
DX: K76.0 Fatty (change of) liver, not elsewhere classified (principal); K76.89 Other specified diseases of liver; K44.9 Diaphragmatic hernia without obstruction or gangrene; Z90.49 Acquired absence of other specified parts of digestive tract
CPT/HCPCS: 74160; Q9967

== ENCOUNTER → 2023-08-20 | Outpatient (CLI) | payer BC ==
--- NOTE | 2023-08-20 09:44 | USB ---
Reason for Exam: Follow-up at short interval from prior study. Patient History: Menarche at age 13. Patient has no children. Postmenopausal. Hormonal Contraceptives, starting at age 17 for 15 years. 2014, Benign Cyst Aspiration on the right side. 01/15/2015, US discontinued breast bx RT on the right side. Maternal aunt had breast cancer, age 64. Paternal aunt had breast cancer, age 60. Paternal aunt had breast cancer, age 60. Risk Values: Rosario 5 year model risk: 1.4%. NCI Lifetime model risk: 8.7%. Technique: Method: Targeted. Prior Study Comparison: 02/28/2021 Left Diagnostic Mammogram, [facility]. 04/14/2022 Bilateral MG 3D diag mammo w/cad JOSH, [facility]. 10/28/2022 Left MG 3D diag mammo w/cad LT, [facility]. Findings: The upper inner quadrant of the left breast, the axilla of the left breast and the retroareolar of the left breast were scanned. Gait hypoechoic structure left 10:00 position 12 cm from the nipple is unchanged at 1 cm x 5 mm versus 1 cm x 5 mm previously. This is compatible with a simple cyst. Overall Assessment: Benign, BI-RAD 2 Management: Screening Mammogram of both breasts in 1 day. A clinical breast exam by your physician is recommended on an annual basis and results should be correlated with mammographic findings. This exam should not preclude additional follow-up of suspicious palpable abnormalities. Results were given to the patient verbally at the time of exam. Electronically signed and approved by: Karlos Longo M.D. Radiologis
== END | disposition home or self-care (01) ==
LOC: RADUSWWP 09:22
PROVIDERS: ATTEND Family Medicine
DX: R92.8 Other abnormal and inconclusive findings on diagnostic imaging of breast (principal); Z78.0 Asymptomatic menopausal state; Z80.3 Family history of malignant neoplasm of breast

== ENCOUNTER → 2023-12-28 | Outpatient (CLI) | payer BC ==
--- NOTE | 2024-01-02 16:21 | MM ---
Reason for Exam: Screening (asymptomatic). Last mammogram was performed 1 year(s) and 8 month(s) ago. Patient History: Menarche at age 13. Patient has no children. Postmenopausal. Hormonal Contraceptives, starting at age 17 for 15 years. 2014, Benign Cyst Aspiration on the right side. 01/15/2015, US discontinued breast bx RT on the right side. Maternal aunt had breast cancer, age 64. Paternal aunt had breast cancer, age 60. Paternal aunt had breast cancer, age 60. Risk Values: Rosario 5 year model risk: 1.4%. NCI Lifetime model risk: 8.7%. Prior Study Comparison: 02/28/2021 Left Diagnostic Mammogram, [facility]. 04/14/2022 Bilateral MG 3D diag mammo w/cad JOSH, [facility]. 10/28/2022 Left MG 3D diag mammo w/cad LT, [facility]. Tissue Density: The breasts are heterogeneously dense, which may obscure small masses. Findings: Analyzed By CAD. The pattern is symmetrical. No significant interval change is evident. Chronic nodularity is present within the left breast. No suspicious groups of microcalcifications, spiculated or lobular masses, architectural distortion or other secondary signs of malignancy are mammographically apparent. Overall Assessment: Benign, BI-RAD 2 Management: Screening Mammogram of both breasts in 1 year. A negative mammogram report should not preclude additional follow up of suspicious palpable abnormalities. Patient should continue monthly self breast exam. A clinical breast exam by your physician is recommended on an annual basis and results should be correlated with mammographic findings. Note on Rosario scores and lifetime risk: 1. A Rosario score greater than 3% is considered moderate risk. If this is the case, consider specialist referral to assess eligibility for a risk reducing agent. 2. If overall lifetime risk for the development of breast cancer is 20% or higher, the patient may qualify for future screening with alternating mammogram and breast MRI. Electronically signed and approved by: Bg Milligan D.O. Radiologis
== END | disposition home or self-care (01) ==
LOC: RADMAMWWP 06:55
PROVIDERS: ATTEND Family Medicine
DX: Z12.31 Encounter for screening mammogram for malignant neoplasm of breast (principal); R92.333 Mammographic heterogeneous density, bilateral breasts; Z78.0 Asymptomatic menopausal state; Z80.3 Family history of malignant neoplasm of breast
CPT/HCPCS: 77063; 77067

== ENCOUNTER → 2024-02-24 | Outpatient (CLI) | payer BC ==
[2024-02-24 10:34] LABS: HCT 41.8 % (37.2-46.3); HGB 13.3 g/dL (12.0-15.0); MCH 29.6 pg (27.0-32.0); MCHC 31.8 g/dL (32.0-37.0); MCV 92.9 FL (80.0-97.0); Mean Platelet Volume 10.2 FL (9.5-12.2); NRBC Per 100 WBC 0 X 10*3/uL (0.00-0.01); Platelet Count 298 X 10*3/uL (140-440); RDW 14.4 % (11.5-14.5); WBC 5.25 X 10*3/uL (4.50-10.00)
[2024-02-24 11:05] LABS: ALT 30 U/L (8-44); AST 20 U/L (13-35); Albumin 4.5 g/dL (3.8-4.9); Albumin/Globulin Ratio 1.73 Ratio (1.60-3.17); Alkaline Phosphatase 109 U/L (41-126); Blood Urea Nitrogen 11.6 mg/dL (9.0-27.0); Calcium 9.4 mg/dL (8.7-10.3); Carbon Dioxide 26.3 mmol/L (21.6-31.8); Chloride 103 mmol/L (96-109); Chol/HDL Ratio 4.43 Ratio; Globulin 2.6 g/dL (1.6-3.3); Glucose 108 mg/dL (70-110); LDL Cholesterol,Calculated 182.5 mg/dL (0.0-131.0); Potassium 4.5 mmol/L (3.5-5.5); Sodium 141 mmol/L (135-145); Total Bilirubin 0.4 mg/dL (0.3-1.2); Total Protein 7.1 g/dL (6.2-8.2)
== END | disposition home or self-care (01) ==
LOC: LABWHC1 06:56
PROVIDERS: ATTEND Family Medicine
DX: Z00.00 Encounter for general adult medical examination without abnormal findings (principal); E66.9 Obesity, unspecified; I10 Essential (primary) hypertension; E78.2 Mixed hyperlipidemia; G47.33 Obstructive sleep apnea (adult) (pediatric)
CPT/HCPCS: 36415; 80053; 80061; 84443; 85027

== ENCOUNTER 2024-07-03 12:26 | Emergency (ER) | payer BC ==
[2024-07-03 12:44] VITALS: TEMP 98
--- NOTE | 2024-07-03 13:08 | ED ---
General Adult HPI - General Chief complaint: Back Pain/Injury Stated complaint: back and leg pain Time Seen by Provider: 07/03/24 12:52 Source: patient, RN notes reviewed Mode of arrival: ambulatory Limitations: no limitations - History of Present Illness Initial comments: Patient is a 58-year-old female presenting to the emergency department with concerns for lower back problems. Patient does have history of chronic lower back problems with history of previous surgery. Patient states around 3 weeks ago she was lifting something up and has had some discomfort since that time. Discomfort in the back has mostly improved however is having radiation to the right buttocks and somewhat down the leg. No weakness of the leg or loss of sensation. No incontinence or retention of bowel or bladder. - Related Data Home Medications Medication Instructions Recorded Confirmed Multivitamins, Thera [Multivitamin 1 tab PO DAILY 06/19/22 06/19/22 (formulary)] [place]-3/Dha/Epa/Fish Oil [Fish Oil 1 tab PO DAILY 06/19/22 06/19/22 1,000 mg Softgel] Venlafaxine HCl [Effexor] 37.5 mg PO QAM 06/19/22 06/19/22 modafiniL [Provigil] 100 mg PO MOTUWETHFR 06/19/22 06/19/22 Previous Rx's Medication Instructions Recorded oxyCODONE HCL [OxyIR] 5 mg PO Q6H PRN 3 Days #6 tab 06/22/22 Cyclobenzaprine [Flexeril] 10 mg PO TID PRN #12 tablet 07/03/24 methylPREDNISolone Dose Pack 4 mg PO DIRECTED #21 tab 07/03/24 [Medrol Dose Pack] Allergies Allergy/AdvReac Type Severity Reaction Status Date / Time No Known Allergies Allergy Verified 07/03/24 12:44 Review of Systems ROS Statement: Those systems with pertinent positive or pertinent negative responses have been documented in the HPI. ROS Other: All systems not noted in ROS Statement are negative. 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 History of Any Multi-Drug Resistant Organisms: None Reported Past Surgical History: Back Surgery Additional Past Surgical History / Comment(s): 2 lumbar laminectomies, C3 to C7 ACDF Past Anesthesia/Blood Transfusion Reactions: No Reported Reaction, Motion Sickness Past Psychological History: Depression Smoking Status: Never smoker Past Alcohol Use History: Occasional Past Drug Use History: None Reported - Past Family History Father Additional Family Medical History / Comment(s): Father is alive at age 77 with history of depression and other mental health issues. Mother Family Medical History: No Reported History Additional Family Medical History / Comment(s): Mother is alive at age 75 with history of myocardial infarction at age 70. Maternal grandfather at age 40 from a myocardial infarction. Paternal grandmother of colon cancer. Brother(s) Additional Family Medical History / Comment(s): Patient has one brother alive and healthy with no major medical problems. Patient does not have any sisters. Patient does not have any children. General Exam Limitations: no limitations General appearance: alert, in no apparent distress Head exam: Present: normocephalic Eye exam: Present: normal appearance Respiratory exam: Present: normal lung sounds bilaterally Cardiovascular Exam: Present: regular rate, normal rhythm Expanded Peripheral pulses: 2+: Posterior Tibialis (R) GI/Abdominal exam: Present: soft. Absent: tenderness, pulsatile mass Extremities exam: Present: normal inspection Back exam: Present: normal inspection Neurological exam: Present: alert, other (Good leg strength. Good strength with dorsi and plantarflexion of the foot.). Absent: motor sensory deficit Psychiatric exam: Present: normal affect, normal mood Skin exam: Present: normal color Course Vital Signs 07/03/24 12:42 Temperature 98 F Pulse Rate 92 Respiratory 20 Rate Blood Pressure 163/84 O2 Sat by Pulse 99 Oximetry Medical Decision Making - Medical Decision Making Was pt. sent in by a medical professional or institution (, PA, SAMPLE BODY BUILDER, urgent care, hospital, or custodial...) When possible be specific @ -No Did you speak to anyone other than the patient for history (EMS, parent, family, police, friend...)? What history was obtained from this source @ -No Did you review nursing and triage notes (agree or disagree)? Why? @ -I reviewed and agree with nursing and triage notes Were old charts reviewed (outside hosp., previous admission, EMS record, old EKG, old radiological studies, urgent care reports/EKG's, custodial records)? Report findings @ -No old charts were reviewed Differential Diagnosis (chest pain, altered mental status, abdominal pain women, abdominal pain men, vaginal bleeding, weakness, fever, dyspnea, syncope, headache, dizziness, GI bleed, back pain, seizure, CVA, palpatations, mental health, musculoskeletal)? @ -Differential Back Pain: Strain, zoster, cauda equina syndrome, epidural abscess, vertebral osteomyelitis, discitis, fracture, subluxation, disc herniation, DJD, spinal stenosis, dissection, AAA, pancreatitis, peptic ulcer disease, pyelonephritis, kidney stone, this is not meant to be an all-inclusive list. EKG interpreted by me (3pts min.). @ -As above X-rays interpreted by me (1pt min.). @ -X-ray lumbar spine with no acute abnormality CT interpreted by me (1pt min.). @ -None done U/S interpreted by me (1pt. min.). @ -None done What testing was considered but not performed or refused? (CT, X-rays, U/S, labs)? Why? @ -None What meds were considered but not given or refused? Why? @ -None Did you discuss the management of the patient with other professionals (professionals i.e. , PA, SAMPLE BODY BUILDER, lab, RT, psych nurse, social services coordinator, overhead cleaner maintainer, teacher, payroll officer, employment evaluator/case manager)? Give summary @ -No Was smoking cessation discussed for >3mins.? @ -No Was critical care preformed (if so, how long)? @ -No Were there social determinants of health that impacted care today? How? (Homelessness, low income, unemployed, alcoholism, drug addiction, transportation, low edu. Level, literacy, decrease access to med. care, fpc, rehab)? @ -No Was there de-escalation of care discussed even if they declined (Discuss DNR or withdrawal of care, Hospice)? DNR status @ -No What co-morbidities impacted this encounter? (DM, HTN, Smoking, COPD, CAD, Cancer, CVA, ARF, Chemo, Hep., AIDS, mental health diagnosis, sleep apnea, morbid obesity)? @ -History of chronic low back pain Was patient admitted / discharged? Hospital course, mention meds given and route, prescriptions, significant lab abnormalities, going to OR and other pertinent info. @ -Patient presents with low back pain with radiation towards the right leg. No weakness, loss of sensation incontinence or retention. Patient does not want narcotics however is receptive to muscle relaxers and steroids. Patient be discharged with follow-up Undiagnosed new problem with uncertain prognosis? @ -No Drug Therapy requiring intensive monitoring for toxicity (Heparin, Nitro, Insulin, Cardizem)? @ -No Were any procedures done? @ -No Diagnosis/symptom? @ -Low back pain Acute, or Chronic, or Acute on Chronic? @ -Acute Uncomplicated (without systemic symptoms) or Complicated (systemic symptoms)? @ -Default Side effects of treatment? @ -No Exacerbation, Progression, or Severe Exacerbation? @ -No Poses a threat to life or bodily function? How? (Chest pain, [place], [place], pneumonia, PE, COPD, DKA, ARF, appy, cholecystitis, CVA, Diverticulitis, Homicidal, Suicidal, threat to staff... and all critical care pts) @ -No Disposition Clinical Impression: Low back pain Disposition: HOME SELF-CARE Condition: Stable Instructions (If sedation given, give patient instructions): Acute Low Back Pain (ED) Additional Instructions: Please do follow-up with your primary care physician in the next couple days for recheck. Consider physical therapy. Return for increased pain, weakness, fever, loss of sensation, loss of control of bowel or bladder function, worsening symptoms or other concerns Prescriptions: Cyclobenzaprine [Flexeril] 10 mg PO TID PRN #12 tablet PRN Reason: Pain methylPREDNISolone Dose Pack [Medrol Dose Pack] 4 mg PO DIRECTED #21 tab Is patient prescribed a controlled substance at d/c from ED?: No Referrals: Melissa Diaz MD [Primary Care Provider] - 1-2 days Time of Disposition: 13:31
[2024-07-03] MEDS: predniSONE 50 MG TAB PO STA (13:17)
--- NOTE | 2024-07-03 13:25 | XR ---
EXAMINATION TYPE: XR lumbar spine 2 or 3V DATE OF EXAM: 07/03/2024 1:18 PM COMPARISON: None. CLINICAL INDICATION: Female, 58 years old with history of pain; TECHNIQUE: XR lumbar spine 2 or 3V views are submitted. FINDINGS: Alignment is anatomic. The pedicles are intact. The transverse processes are intact. There is no s pondylolysis or spondylolisthesis. Surgical clips in the gallbladder fossa. Multilevel mild to moder ate hypertrophic and degenerative changes with facet arthropathy most marked at levels L3-S1. Suspect foraminal encroachment. Interspinous arthropathy. Loss of the normal lumbar lordosis with straighten ing of the cervical spine. IMPRESSION: 1. No acute process. [facility], , 07/03/2024 1:23 PM
[2024-07-03 13:44] VITALS: BP 144/87; PULSE 74; RESP 18
== END 2024-07-03 13:44 | disposition home or self-care (01) ==
LOC: EC 12:26
DX: M54.50 Low back pain, unspecified (principal)
CPT/HCPCS: 72100; 99283; J7512